=== PATIENT | male | born 1955 | race Caucasian/White ===

== ENCOUNTER 2016-05-22 14:06 | Inpatient (IN) | payer OTHER ==
[~2016-05-22] VITALS: Ht 160 cm; Wt 79.9 kg
[~2016-05-22 14:06] MED LIST: ALPR0.25 PO; AMLO-218 PO; ASPI-664 PO; ATEN-122 PO; ATOR20TA38 PO; CITA20TA11 PO; HYDR-3671 PO; IMO2 PO; METR500T PO; NEPH PO; TRAZ100T15 PO; ZOLP5TAB PO
[2016-05-22 17:27] VITALS: TEMP 98.9
[2016-05-22] MEDS ORDERED: ONDANSETRON 4 MG INJ IV STA (18:15)
[2016-05-22] MEDS ORDERED: PANTOPRAZOLE IV 80 MG in SOD CHLORIDE 0.9% 100 ML IV STA (18:15)
[2016-05-22] MEDS ORDERED: PANTOPRAZOLE 40 MG INJ IV STA (18:15)
[2016-05-22] MEDS ORDERED: FAMOTIDINE 20 MG INJ IV STA (18:15)
[2016-05-22] MEDS ORDERED: FAMO20TA18 PO (18:22)
[2016-05-22] MEDS ORDERED: APR50 PO (18:23)
[2016-05-22] MEDS ORDERED: CLON-379 PO (18:24)
[2016-05-22] MEDS ORDERED: AMLO5TAB4 PO (18:25)
[2016-05-22] MEDS ORDERED: ATOR40TA68 PO (18:26)
[2016-05-22] MEDS ORDERED: OLAN5TAB5 PO (18:27)
[2016-05-22] MEDS ORDERED: TRAZ100T15 PO (18:27)
[2016-05-22] MEDS ORDERED: PARO20TA58 PO (18:27)
[2016-05-22] MEDS ORDERED: CARV12.579 PO (18:28)
[2016-05-22] MEDS ORDERED: LOSA50TA6 PO (18:28)
--- NOTE | 2016-05-22 19:32 | ERA ---
ER Documentation Chief Complaint Date/Time DATE: 05/22/16 TIME: 19:21 Chief Complaint vomiting blood started today also bilaterial leg swelling HPI This is a 60-year-old male with a known history of hypertension that presents to the emergency department complaining of multiple episodes of nonbloody nonbilious emesis and loose watery stools that have been present for the past 10 hours. The patient stated he awoke this morning at 9 AM and felt very nauseous. He had an episode of nonbilious emesis which he stated had a pinkish tinge to the vomit. He continued to have multiple further episodes of emesis that was nonbloody nonbilious. Contrary to the triage note the patient stated he was not vomiting bright red blood but rather had the one episode is stated previously of a pinkish discoloration. The patient states he has had no melanotic stools or bright red blood per rectum. He is complaining of a significant amount of abdominal pain most prominent in the left lower quadrant which is a sharp shooting pain, nonradiating, 6 out of 10 in intensity. The patient had a previous appendectomy. He has no shortness of breath at rest or exertion. He denies any chest pain or pressure that radiates to the neck arm back or jaw. The patient states he had been seen and evaluated at [facility] at the onset of his symptoms and had been discharged. He indicated his symptoms had not improved and therefore he presented to the emergency department at [facility] for further evaluation. He denies any similar symptoms in the past. The patient has a remote history of alcohol abuse but states he has not consumed any ethanol for the past 2 months. He denies any illicit drug use. The patient also indicates that he has noticed mild swelling of his bilateral lower extremities that began yesterday evening. He stated the right ankle appeared more swollen compared to the left. He denies any recent travel or prolonged immobilization states he has no calf tenderness or muscle spasms. ROS All systems reviewed and are negative except as per history of present illness. Medications Home Meds Active Scripts Atenolol* (Tenormin*) 50 Mg Tab, 50 MG PO BID for 30 Days, TAB Prov:DANILO SINGH NUCLEAR UNIT OPERATOR 07/22/15 Reported Medications Losartan Potassium* (Losartan Potassium*) 50 Mg Tablet, 50 MG PO BID, TAB 05/22/16 Carvedilol* (Carvedilol*) 12.5 Mg Tablet, 12.5 MG PO BID, #60 TAB 05/22/16 Trazodone Hcl* (Desyrel*) 100 Mg Tab, 100 MG PO QHS, #30 TAB 05/22/16 Paroxetine Hcl* (Paxil*) 20 Mg Tablet, 20 MG PO DAILY, TAB 05/22/16 Olanzapine* (Zyprexa*) 5 Mg Tablet, 5 MG PO DAILY, #30 TAB 05/22/16 Atorvastatin* (Atorvastatin*) 40 Mg Tablet, 40 MG PO QHS, #30 TAB 05/22/16 Amlodipine Besylate* (Norvasc*) 5 Mg Tablet, 5 MG PO DAILY, TAB 05/22/16 Clonidine Hcl* (Clonidine Hcl*) 0.1 Mg Tab, 0.1 MG PO QAM, TAB TAKE 2ND DOSAGE IN THE PM IF NEEDED 05/22/16 Hydralazine Hcl* (Hydralazine Hcl*) 50 Mg Tab, 50 MG PO BID, #120 TAB 05/22/16 Famotidine* (Famotidine*) 20 Mg Tablet, 20 MG PO BID, #60 TAB 05/22/16 Discontinued Scripts Metronidazole* (Flagyl*) 500 Mg Tablet, 500 MG PO Q8 for 14 Days, TAB Prov:MAURO JULIEN V. NUCLEAR UNIT OPERATOR 12/03/15 Hydralazine Hcl* (Hydralazine Hcl*) 25 Mg Tab, 25 MG PO TID for 30 Days, TAB Prov:MAURO JULIEN V. NUCLEAR UNIT OPERATOR 12/03/15 Multivit/Ca Carb/B Cmplx/Fa* (Candy-Edward*) 1 Tab Tab, 1 TAB PO DAILY for 30 Days , TAB 3 Refills Prov:EARL LEE S. 10/22/15 Loperamide Hcl* (Loperamide Hcl*) 2 Mg Cap, 2 MG PO Q4 Y for DIARRHEA for 30 Days, CAP Prov:EARL LEE S. 10/22/15 Citalopram Hydrobromide* (Celexa*) 20 Mg Tablet, 10 MG PO DAILY for 30 Days, TAB 1 Refill Prov:EARL LEE S. 10/22/15 Aspirin* (Aspirin* EC) 81 Mg Tabec, 81 MG PO DAILY for 30 Days Prov:MAURO JULIEN V. NUCLEAR UNIT OPERATOR 08/20/15 Atorvastatin Calcium* (Atorvastatin Calcium*) 20 Mg Tab, 40 MG PO HS for 30 Days , TAB Prov:JULIEN,MAURO V. NUCLEAR UNIT OPERATOR 08/20/15 Trazodone Hcl* (Desyrel*) 100 Mg Tab, 100 MG PO HS for 30 Days, TAB Prov:JULIEN,MAURO V. NUCLEAR UNIT OPERATOR 08/20/15 Amlodipine Besylate* (Norvasc*) 10 Mg Tab, 10 MG PO DAILY for 30 Days, TAB Prov:JULIEN,MAURO V. NUCLEAR UNIT OPERATOR 08/20/15 Alprazolam* (Xanax*) 0.25 Mg Tablet, 0.25 MG PO Q8H Y for ANXIETY, #30 TAB Prov:DANILO SINGH NUCLEAR UNIT OPERATOR 07/25/15 Zolpidem Tartrate* (Ambien*) 5 Mg Tablet, 5 MG PO QHS Y for INSOMNIA, #20 TAB Prov:DANILO SINGH NUCLEAR UNIT OPERATOR 07/25/15 Allergies Allergies: Coded Allergies: No Known Allergies (Verified Allergy, Unknown, 05/22/16) PMhx/Soc Medical and Surgical Hx: pt denies Surgical Hx History of Surgery: No Anesthesia Reaction: No Hx Neurological Disorder: Yes (dizziness) Hx Respiratory Disorders: No Hx Cardiac Disorders: Yes (HTN) Hx Psychiatric Problems: Yes (alcohol abuse) Hx Miscellaneous Medical Probl: Yes (dyslipidemia, renal insuff) Hx Alcohol Use: Yes (vodka 11/28/15) Hx Substance Use: No Hx Tobacco Use: No Smoking Status: Never smoker Physical Exam Vitals Vital Signs Date Time Temp Pulse Resp B/P Pulse Ox O2 Delivery O2 Flow Rate FiO2 05/22/16 19:46 107 18 171/107 99 Room Air 05/22/16 17:27 98.9 124 22 167/101 98 Room Air 05/22/16 14:20 97.8 120 20 181/104 97 Physical Exam Constitutional:Well-developed. Well-nourished. HEENT:Normocephalic. Atraumatic.Pupils were equal round reactive to light. Dry mucous membranes.No tonsillar exudates. No conjunctival pallor. No blood present within the oropharynx. Neck: No nuchal rigidity. No lymphadenopathy. No posterior cervical spine tenderness or step-offs. Respiratory: Not using accessory muscles of respiration.Lungs were clear to auscultation bilaterally. No rhonchi. No rales. No wheezing. Cardiovascular: Regular rate regular rhythm.No murmurs. No rubs were appreciated.S1, S2 normal. Distal pulses are palpable 2+ bilaterally. GI: Abdomen was soft. Tenderness in the left lower quadrant. Non Distended. No pulsatile abdominal masses or bruits. No rebound. No guarding. Bowel sounds were present and normal. Muscle skeletal: Full range of motion of both the upper and lower extremities bilaterally.Normal muscle tone.No assymetrical calf tenderness or swelling. 1+ pitting edema of the right lower extremity only present around the ankle and dorsal aspect of the foot with no edema of the left lower extremity. Skin: No petechia, no purpura. No lesions on the palms or the soles of the feet. No maculopapular rash. NEURO: Patient was alert, awake, orientated x3.No facial droop. Gait observed and normal with no ataxia.Speech had regular rate and rhythm. No focal neurological deficits. Result Diagram: 05/22/16184405/22/161844 Results 24 hrs Laboratory Tests Test 05/22/16 18:45 05/22/16 19:54 Activated Partial Thromboplast Time 32.6Sec Alanine Aminotransferase (ALT/SGPT) 25IU/L Albumin 4.2g/dl Albumin/Globulin Ratio 1.23 Alkaline Phosphatase 62IU/L Amylase Level 117U/L Anion Gap 18 Aspartate Amino Transf (AST/SGOT) 29IU/L Basophils # 0.010^3/ul Basophils % 0.4% Blood Morphology Comment Blood Urea Nitrogen 15mg/dl Calcium Level 9.3mg/dl Carbon Dioxide Level 27mmol/L Chloride Level 102mmol/L Creatinine 1.30mg/dl Direct Bilirubin 0.00mg/dl Eosinophils # 0.110^3/ul Eosinophils % 1.5% Globulin 3.40g/dl Glucose Level 101mg/dl Hematocrit 31.4% Hemoglobin 10.6g/dl INR International Normalized Ratio 1.04 Indirect Bilirubin 1.0mg/dl Lipase 126U/L Lymphocytes # 0.910^3/ul Lymphocytes % 13.1% Mean Corpuscular Hemoglobin 29.8pg Mean Corpuscular Hemoglobin Concent 33.9g/dl Mean Corpuscular Volume 87.8fl Mean Platelet Volume 7.2fl Monocytes # 1.010^3/ul Monocytes % 15.3% Neutrophils # 4.710^3/ul Neutrophils % 69.7% Nucleated Red Blood Cells # 0.010^3/ul Nucleated Red Blood Cells % 0.0/100WBC Platelet Count 79314^3/UL Platelet Estimate PLT APPEAR ADEQUATE Potassium Level 3.4mmol/L Prothrombin Time 13.6Sec Prothrombin Time Ratio 1.1 Red Blood Count 3.5810^6/ul Red Cell Distribution Width 15.9% Sodium Level 144mmol/L Total Bilirubin 1.0mg/dl Total Protein 7.6g/dl Troponin I < 0.012ng/ml White Blood Count 6.810^3/ul Urine Bacteria RARE Urine Bilirubin NEGATIVE Urine Clarity CLEAR Urine Color LT. YELLOW Urine Glucose NEGATIVE% Urine Hemoglobin 1+ Urine Ketones NEGATIVE Urine Leukocyte Esterase NEGATIVE Urine Microscopic RBC 2-5/HPF Urine Microscopic WBC 0-2/HPF Urine Nitrite NEGATIVE Urine Specific [place] 1.020 Urine Squamous Epithelial Cells FEW Urine Total Protein 4+ Urine Urobilinogen 0.2 E.U./dL Urine pH 7.5 Current Medications Medications (Trade) Dose Ordered Sig/Sharda Route PRN Reason Start Time Stop Time Status Last Admin Dose Admin Famotidine (Pepcid Iv) 20 mg ONCE STAT IV 05/22/16 18:15 05/22/16 18:17 DC 05/22/16 19:48 Pantoprazole 40 mg 40 mg ONCE STAT IV 05/22/16 18:15 05/22/16 18:17 DC 05/22/16 19:48 Pantoprazole/ Sodium Chloride (Protonix Iv/NS) 100 ml @ 10 mls/hr ONCE STAT IV 05/22/16 18:15 05/23/16 04:14 Cancel Ondansetron HCl (Zofran Inj) 4 mg ONCE STAT IV 05/22/16 18:15 05/22/16 18:17 DC 05/22/16 19:48 Morphine Sulfate (morphine) 4 mg ONCE STAT IV 05/22/16 20:12 05/22/16 20:13 DC 05/22/16 20:22 Metoclopramide HCl (Reglan) 10 mg ONCE STAT IV 05/22/16 20:12 05/22/16 20:13 DC 05/22/16 20:21 IV Flush 10 ml 10 ml STK-MED ONCE .ROUTE 05/22/16 20:20 05/22/16 20:21 DC 05/22/16 20:40 Sodium Chloride (NS) 100 ml @ ud STK-MED ONCE .ROUTE 05/22/16 20:20 05/22/16 20:21 DC 05/22/16 20:40 Iodixanol (Visipaque Locm) 100 ml STK-MED ONCE .ROUTE 05/22/16 20:20 05/22/16 20:21 DC Clonidine (Catapres) 0.2 mg ONCE ONCE PO 05/22/16 21:30 05/22/16 21:31 UNV Metoclopramide HCl (Reglan) 10 mg ONCE ONCE IV 05/22/16 21:30 05/22/16 21:31 UNV Procedures/MDM The patient presented to the emergency department with a presentation of upper gastrointestinal bleeding and abdominal pain. My differential diagnosis included but was not limited to peptic ulcer disease, gastric or esophageal erosions, gastritis, esophageal varices, Gloria-Yarbrough tear, tumor or arteriovenous malformations. Given that the patient also had abdominal pain my differential diagnosis included but was not limited to abdominal aortic aneurysm , appendicitis, pancreatitis, perforated peptic ulcer, perforated viscus, Boerhaaves syndrome or visceral pain such as diverticulitis, DKA, esophagitis, hepatitis or bowel obstruction. The patient was placed on a diamond cleaver, continuous pulse oximetry, and IV access was established by nursing staff. The patient received IV fluids, Protonix and Zofran as an antiemetic. For analgesic control the patient received intravenous morphine. I obtained a CT scan of the abdomen which was reviewed by the radiologist as well as myself. There was evidence of diverticulosis without diverticulitis. The patient was hypertensive upon arrival into the emergency department with no signs of end-organ damage to suggest hypertensive emergency or urgency. I obtained a 12-lead EKG tracing which showed no left ventricular hypertrophy. Blood pressure improved with oral clonidine 12 Lead EKG tracing ordered and reviewed by myself showed: Sinus tachycardia of 123 bpm and no arrhythmia. SD interval normal. QRS duration normal. No ST segment elevation No ST segment depression. No changes consistent with acute ischemia. I did explain to the patient that this could likely be a result of a viral etiology causing gastritis and enteritis. He has no risk factors for Clostridium difficile. The patient has a remote history of alcohol abuse but states he has not consumed any alcohol for the past 2 months. He did state he had one episode of pinkish emesis and his hemoglobin was stable at 10.4. Observation Note: Time: 4 hours Family Hx: No Hypertension Evaluation: Multiple exams showed no peritoneal signs of the abdomen. The patient had received multiple doses of antiemetics but still continued to feel nauseous. The patient therefore will be admitted for observation for IV fluid hydration Departure Diagnosis: Primary Impression: Intractable nausea and vomiting Qualified Code: R11.2 - Intractable vomiting with nausea, unspecified vomiting type Additional Impressions: Diarrhea Qualified Code: R19.7 - Diarrhea, unspecified type Diverticulosis Qualified Code: K57.10 - Diverticulosis of small intestine without hemorrhage Condition: Serious ANDRES BARBOZA May 22, 2016 19:32
[2016-05-22 19:46] LABS: BASOPHILS % 0.4 % (0.0-2.0); EOSINOPHILS # 0.1 10^3/ul (0.0-0.5); EOSINOPHILS % 1.5 % (0.0-7.0); HEMATOCRIT 31.4 % (42.0-52.0); HEMOGLOBIN 10.6 g/dl (14.0-18.0); LYMPHOCYTES # 0.9 10^3/ul (0.8-2.9); LYMPHOCYTES % 13.1 % (15.0-51.0); MEAN CORPUSCULAR HEMOGLOBIN 29.8 pg (29.0-33.0); MEAN CORPUSCULAR HGB CONC 33.9 g/dl (32.0-37.0); MEAN CORPUSCULAR VOLUME 87.8 fl (82.0-101.0); MEAN PLATELET VOLUME 7.2 fl (7.4-10.4); MONOCYTES % 15.3 % (0.0-11.0); NEUTROPHIL # 4.7 10^3/ul (1.6-7.5); NEUTROPHILS % 69.7 % (39.0-77.0); PLATELET COUNT 201 10^3/UL (140-440); RED BLOOD COUNT 3.58 10^6/ul (4.70-6.10); RED CELL DISTRIBUTION WIDTH 15.9 % (11.5-14.5); UNCORRECTED WBC 6.8 10^3/ul (4.8-10.8); WHITE BLOOD COUNT 6.8 10^3/ul (4.8-10.8)
[2016-05-22 19:48] LABS: CONDITION 1; LH ANALYZER COMMENTS 1
[2016-05-22 19:56] LABS: ALBUMIN 4.2 g/dl (3.3-4.9)
[2016-05-22 19:57] LABS: CHLORIDE 102 mmol/L (97-110); INR 1.04; POTASSIUM 3.4 mmol/L (3.5-5.1); PROTIME 13.6 Sec (12.2-14.2); PT RATIO 1.1; SODIUM 144 mmol/L (135-144)
[2016-05-22 19:58] LABS: PARTIAL THROMBOPLASTIN TIME 32.6 Sec (25.0-35.0)
[2016-05-22 19:59] LABS: ALANINE AMINOTRANSFERASE 25 IU/L (13-69); ALBUMIN/GLOBULIN RATIO 1.23; ALKALINE PHOSPHATASE 62 IU/L (42-121); AMYLASE 117 U/L (11-123); ANION GAP 18 (8-16); ASPARTATE AMINO TRANSFERASE 29 IU/L (15-46); BLOOD UREA NITROGEN 15 mg/dl (7-20); CARBON DIOXIDE 27 mmol/L (21-31); GLUCOSE 101 mg/dl (70-220); TOTAL PROTEIN 7.6 g/dl (6.1-8.1)
[2016-05-22 20:00] LABS: CALCIUM 9.3 mg/dl (8.4-10.2)
[2016-05-22 20:11] LABS: ADD UMIC YES; URINE BILIRUBIN (Dip) NEGATIVE (NEGATIVE); URINE BLOOD (Dip) 1+ (NEGATIVE); URINE COLOR LT. YELLOW (YELLOW); URINE GLUCOSE (Dip) NEGATIVE (NEGATIVE); URINE KETONES (Dip) NEGATIVE (NEGATIVE); URINE LEUKOCYTE ESTERASE (Dip) NEGATIVE (NEGATIVE); URINE NITRITE (Dip) NEGATIVE (NEGATIVE); URINE TOTAL PROTEIN (Dip) 4+ (NEGATIVE); URINE UROBILINOGEN (Dip) 0.2 E.U./dL (0.1-1.0)
[2016-05-22] MEDS ORDERED: morphine 4 MG/ML VIAL IV STA (20:12)
[2016-05-22] MEDS ORDERED: METOCLOPRAMIDE 10 MG INJ IV STA (20:12)
[2016-05-22 20:19] LABS: TROPONIN-I < 0.012 ng/ml (0.00-0.12)
[2016-05-22] MEDS ORDERED: SOD CHLORIDE 0.9% 100 ML ONE (20:20)
[2016-05-22] MEDS ORDERED: IODIXANOL LOCM 100 ML BTL ONE (20:20)
[2016-05-22 20:35] LABS: BACTERIA,URINE RARE; SQUAMOUS EPITHELIAL CELL,UR FEW
--- NOTE | 2016-05-22 20:53 | RADRPT ---
PROCEDURE: CT of the abdomen and pelvis CLINICAL INDICATION: Abdominal pain TECHNIQUE: The study was performed utilizing a [employer] 64-slice multidetector CT scanner. Dir ect spiral axial sections were obtained through the abdomen and pelvis with intravenous contrast. Af ter administration of 90 cc of Isovue -300, postcontrast images were obtained. Coronal and sagittal reformatted images were performed. The CTDI vol is 18.96 mGy and the DLP is 1175.42 mGy-cm. The im ages were reviewed on a PACS workstation. COMPARISON: No prior studies are available for comparison. FINDINGS: CT abdomen: Minimal dependent changes in the lung bases are seen. The remaining lung bases are toshia ar. The heart is not enlarged. No pleural or pericardial effusion is seen. The liver is normal in size and contour. No focal liver lesions or intrahepatic biliary dilatation is seen. The gallbladder is normal. No biliary dilatation is seen. The spleen, pancreas, and adrena l glands are unremarkable in appearance. The kidneys are normal size and contour enhance normally. B ilateral renal cortical scarring is seen. Simple bilateral renal cysts are seen. Nonspecific bilat eral perinephric soft tissue stranding is seen. No evidence of hydronephrosis or nephrolithiasis is seen. The stomach is unremarkable. Diverticulosis is seen in the descending colon and sigmoid colon out e vidence of diverticulitis. The small and remainder of the large bowel are otherwise unremarkable in course and caliber. No inflammatory changes in the periappendiceal region is seen. No enlarged lym ph nodes or fluid collections are seen. The aorta is normal in caliber . CT pelvis: No pelvic mass, adenopathy, or focal fluid collection is seen. There is no free fluid. The urinary bladder is normal. Degenerative spondylosis in the lower thoracic and lumbar spine is s een. Anterior bridging syndesmophytes are seen with relative preservation of the disk space. No osse ous lesions are seen. IMPRESSION: 1. No acute pathology in the abdomen and pelvis. 2. Bilateral renal cortical scarring with nonspecific perinephric soft tissue stranding. 3. Colonic diverticulosis without evidence of diverticulitis. RPTAT: HPNM Wilson Ballard, Physician Date Time Electronically viewed and signed by Wilson Ballard, Physician on 05/22/2016 20:52 /
[2016-05-22 21:22] LABS: PLATELET ESTIMATE PLT APPEAR ADEQUATE
[2016-05-22] MEDS ORDERED: METOCLOPRAMIDE 10 MG INJ IV ONE (21:30)
[2016-05-22] MEDS ORDERED: ACETAMINOPHEN 325 MG TAB PO PRN (22:00)
[2016-05-22] MEDS ORDERED: ONDANSETRON 4 MG INJ IV PRN (22:00)
[2016-05-22 22:31] VITALS: PULSE 106
[2016-05-22 22:52] VITALS: Ht 160 cm; Wt 79.9 kg
[2016-05-22] MEDS ORDERED: ALBUTEROL/IPRATROPIUM (NEB) 3 ML AMP HHN PRN (23:00)
[2016-05-22] MEDS ORDERED: morphine 2 MG INJ IV PRN (23:00)
[2016-05-23] VITALS (10 sets, daily range): BP systolic 123–158; BP diastolic 77–97; PULSE 80–98; RESP 14–21
[2016-05-23] MEDS: ZOLPIDEM 5 MG TAB PO PRN (00:50)
[2016-05-23] MEDS ORDERED: ONDANSETRON 4 MG INJ IV PRN (05:00)
[2016-05-23] MEDS ORDERED: DEXTROSE 5%-0.45% NACL 1,000 ML IV SCH (05:00)
[2016-05-23] MEDS ORDERED: hydrALAzine 20 MG INJ IV PRN (05:00)
[2016-05-23] MEDS: metroNIDAZOLE 500 MG/NS (PMX) 100 ML IVPB SCH ×3 (05:26→22:50)
[2016-05-23] MEDS: PANTOPRAZOLE 40 MG INJ IV SCH (05:26)
[2016-05-23] MEDS ORDERED: ACETAMINOPHEN 325 MG TAB PO PRN (05:30)
--- NOTE | 2016-05-23 06:01 | HP ---
DATE OF ADMISSION: 05/22/2016 CHIEF COMPLAINT: Abdominal pain, nausea, vomiting, and diarrhea. HISTORY OF PRESENT ILLNESS: The patient is a 60-year-old male with a history of hypertension, CVA, dyslipidemia, depression, alcohol abuse, dyslipidemia, C. diff, medication noncompliance, and renal insufficiency who presented to the emergency department with abdominal pain, nausea, vomiting, and d iarrhea. He stated his symptoms started earlier this morning. His abdominal pain is diffuse and as sociated with multiple episodes of nonbloody, nonbilious emesis. He described his diarrhea as water y. He said he actually went to [facility] earlier and was diagnosed with "diverticulitis" but said "they were not able to treat me because of my insurance." As such, according to him, he de cided to come and stayed for evaluation. The patient was last admitted here 6 months ago, and at at time, he was treated for alcohol withdrawal as well as C. diff. When he presented to the ER today, blood pressure was 181/104, heart rate 120, respiratory rate 20, temperature 97.8, oxygen saturation 97% on room air. Laboratory values show a potassium of 3.4, cre atinine 1.3, and hemoglobin 10.6. CT abdomen and pelvis shows colonic diverticulosis without eviden ce of diverticulitis. The patient was given pain medication, antiemetics, and blood pressure medication while he was in e ER. REVIEW OF SYSTEMS: A 12-point review was performed and negative except as mentioned in HPI. PAST MEDICAL HISTORY: As per HPI. PAST SURGICAL HISTORY: Denies. SOCIAL HISTORY: Positive for alcohol abuse, including binge drinking. ALLERGIES: NO KNOWN DRUG ALLERGIES. HOME MEDICATIONS: 1. Norvasc. 2. Atenolol. 3. Lipitor. 4. Coreg. 5. Clonidine. 6. Hydralazine. 7. Losartan. 8. Olanzapine. 9. Paroxetine. 10. Trazodone. 11. Famotidine. PHYSICAL EXAMINATION: GENERAL: No acute distress, answering questions appropriately, alert and oriented. HEENT: Normocephalic, atraumatic. Extraocular muscles intact. Pupils are reactive to light. CARDIOVASCULAR: Tachycardic with regular rhythm. LUNGS: Clear with no wheezes or rhonchi. ABDOMEN: Soft. There is some discomfort diffusely to deep palpation with no guarding. No rigidity . There are positive bowel sounds. EXTREMITIES: No edema. NEUROLOGIC: No focal deficits. LABORATORY DATA: Pertinent positives as mentioned in the HPI. IMPRESSION: 1. Abdominal pain with nausea, vomiting, and diarrhea. 2. Hypertension, blood pressure not at goal. 3. Chronic kidney disease. 4. Anemia of chronic disease. 5. History of alcohol abuse. 6. Mild hypokalemia. 7. History of chronic cerebrovascular accident as noted on head CT in September of 2015. 8. History of C. diff. PLAN: The patient's symptom of abdominal pain, nausea, vomiting, and diarrhea could be secondary to gastroenteritis versus possibly from C. difficile colitis given his history. He will be kept n.p.o . for now. We will provide pain medication and antiemetics. He will receive IV fluid. We will sta rt him on Cipro and Flagyl. We will send stool culture, stool WBC, and C. diff. He will receive an tihypertensives for better blood pressure control. Once he is no longer n.p.o., he will be continue d with his home medication with adjustment as needed. We will avoid nephrotoxins and renally dose a ll medications. Further workup and management per clinical course. Dictated By: JORGE PAULINO/RIZWANA Conf#: [id number] DID#: [id number]
[2016-05-23] MEDS ORDERED: ATENOLOL 50 MG TAB PO SCH (09:00)
[2016-05-23] MEDS ORDERED: FAMOTIDINE 20 MG TAB PO SCH (09:00)
[2016-05-23] MEDS: CIPROFLOXACIN 400MG/D5W 200 ML IVPB SCH ×2 (09:37→20:53)
[2016-05-23] MEDS: LOSARTAN 50 MG TAB PO SCH ×2 (09:40→20:54)
[2016-05-23] MEDS: PAROXETINE 20 MG TAB PO SCH (09:41)
[2016-05-23] MEDS: AMLODIPINE 5 MG TAB PO SCH (09:41)
[2016-05-23] MEDS: OLANZAPINE 5 MG TAB PO SCH (09:42)
--- NOTE | 2016-05-23 10:46 | PN ---
Date/Time of Note Date/Time of Note DATE: 05/23/16 TIME: 10:44 Assessment/Plan VTE Prophylaxis VTE Prophylaxis Intervention: SCD's Lines/Catheters IV Catheter Type (from [facility]): Saline Lock Urinary Cath still in place: No Assessment/Plan Assessment/Plan 1. Abdominal pain with nausea, vomiting, and diarrhea. 2. Hypertension, blood pressure not at goal. 3. Chronic kidney disease. 4. Anemia of chronic disease. 5. History of alcohol abuse. 6. Mild hypokalemia. 7. History of chronic cerebrovascular accident as noted on head CT in September of 2015. 8. History of C. diff. Iv abx start diet Bp stable downgrade to med;/surge floor Subjective 24 Hr Interval Summary Free Text/Dictation DOING OK, WANTS TO EAT Exam/Review of Systems Vital Signs Vitals Vital Signs Date Time Temp Pulse Resp B/P Pulse Ox O2 Delivery O2 Flow Rate FiO2 05/23/16 08:55 92 05/23/16 07:54 97.7 14 158/97 95 05/23/16 04:46 Room Air Intake and Output 05/22/16 05/22/16 05/23/16 15:00 23:00 07:00 Output Total 350 ml Balance -350 ml Exam GENERAL: No acute distress, answering questions appropriately, alert and oriented. HEENT: Normocephalic, atraumatic. Extraocular muscles intact. Pupils are reactive to light. CARDIOVASCULAR: Tachycardic with regular rhythm. LUNGS: Clear with no wheezes or rhonchi. ABDOMEN: Soft. There is some discomfort diffusely to deep palpation with no guarding. No rigidity. There are positive bowel sounds. EXTREMITIES: No edema. NEUROLOGIC: No focal deficits. Results Result Diagram: 05/22/16184405/22/161844 Results 24 hrs Laboratory Tests Test 05/22/16 18:45 05/22/16 19:54 Activated Partial Thromboplast Time 32.6 Alanine Aminotransferase (ALT/SGPT) 25 Albumin 4.2 Albumin/Globulin Ratio 1.23 Alkaline Phosphatase 62 Amylase Level 117 Anion Gap 18 H Aspartate Amino Transf (AST/SGOT) 29 Basophils # 0.0 Basophils % 0.4 Blood Morphology Comment Blood Urea Nitrogen 15 Calcium Level 9.3 Carbon Dioxide Level 27 Chloride Level 102 Creatinine 1.30 H Direct Bilirubin 0.00 Eosinophils # 0.1 Eosinophils % 1.5 Globulin 3.40 H Glucose Level 101 Hematocrit 31.4 L Hemoglobin 10.6 L INR International Normalized Ratio 1.04 Indirect Bilirubin 1.0 Lipase 126 Lymphocytes # 0.9 Lymphocytes % 13.1 L Mean Corpuscular Hemoglobin 29.8 Mean Corpuscular Hemoglobin Concent 33.9 Mean Corpuscular Volume 87.8 Mean Platelet Volume 7.2 L Monocytes # 1.0 H Monocytes % 15.3 H Neutrophils # 4.7 Neutrophils % 69.7 Nucleated Red Blood Cells # 0.0 Nucleated Red Blood Cells % 0.0 Platelet Count 201 # Platelet Estimate PLT APPEAR ADEQUATE Potassium Level 3.4 L Prothrombin Time 13.6 Prothrombin Time Ratio 1.1 Red Blood Count 3.58 L Red Cell Distribution Width 15.9 H Sodium Level 144 Total Bilirubin 1.0 Total Protein 7.6 Troponin I < 0.012 White Blood Count 6.8 # Urine Bacteria RARE Urine Bilirubin NEGATIVE Urine Clarity CLEAR Urine Color LT. YELLOW Urine Glucose NEGATIVE Urine Hemoglobin 1+ H Urine Ketones NEGATIVE Urine Leukocyte Esterase NEGATIVE Urine Microscopic RBC 2-5 Urine Microscopic WBC 0-2 Urine Nitrite NEGATIVE Urine Specific [place] 1.020 Urine Squamous Epithelial Cells FEW Urine Total Protein 4+ H Urine Urobilinogen 0.2 E.U./dL Urine pH 7.5 Medications Medications Current Medications Pantoprazole (Protonix Iv) 40 mg DAILY@06 IV Last administered on 05/23/16 05: 26; Admin Dose 40 MG; Start 05/23/16 at 06:00 Morphine Sulfate (morphine) 2 mg Q4H PRN IV pain Last administered on 05/23/16 03:39; Admin Dose 2 MG; Start 05/22/16 at 23:00 Zolpidem Tartrate 5 mg 5 mg HS PRN PO INSOMNIA Last administered on 05/23/16 00 :50; Admin Dose 5 MG; Start 05/23/16 at 01:00 Ciprofloxacin/ Dextrose 200 ml @ 200 mls/hr Q12 IVPB Last administered on 09:37; Admin Dose 200 MLS/HR; Start 05/23/16 at 09:00 Metronidazole (Flagyl 500 Mg (Pmx)) 100 ml @ 100 mls/hr Q8 IVPB Last administered on 05/23/16 05:26; Admin Dose 100 MLS/HR; Start 05/23/16 at 06:00 Ondansetron HCl (Zofran Inj) 4 mg Q6H PRN IV NAUSEA AND/OR VOMITING; Start 05/23 at 05:00 Hydralazine HCl (Apresoline) 10 mg Q4H PRN IV SBP > 160; Start 05/23/16 at 05:00 Amlodipine Besylate (Norvasc) 5 mg DAILY PO Last administered on 05/23/16 09:41 ; Admin Dose 5 MG; Start 05/23/16 at 09:00 Atenolol (Tenormin) 50 mg BID PO Last administered on 05/23/16 09:42; Admin Dose 50 MG; Start 05/23/16 at 09:00 Atorvastatin Calcium (Lipitor) 40 mg QHS PO ; Start 05/23/16 at 21:00 Carvedilol (Coreg) 12.5 mg BID PO Last administered on 05/23/16 09:40; Admin Dose 12.5 MG; Start 05/23/16 at 09:00 Famotidine (Pepcid) 20 mg BID PO Last administered on 05/23/16 09:41; Admin Dose 20 MG; Start 05/23/16 at 09:00 Hydralazine HCl (Apresoline) 50 mg BID PO Last administered on 05/23/16 09:39; Admin Dose 50 MG; Start 05/23/16 at 09:00 Losartan Potassium (Cozaar) 50 mg BID PO Last administered on 05/23/16 09:40; Admin Dose 50 MG; Start 05/23/16 at 09:00 Olanzapine (Zyprexa) 5 mg DAILY PO Last administered on 05/23/16 09:42; Admin Dose 5 MG; Start 05/23/16 at 09:00 Paroxetine HCl (Paxil) 20 mg DAILY PO Last administered on 05/23/16 09:41; Admin Dose 20 MG; Start 05/23/16 at 09:00 Trazodone HCl (Desyrel) 100 mg QHS PO ; Start 05/23/16 at 21:00 Acetaminophen (Tylenol Tab) 650 mg Q4H PRN PO PAIN AND OR ELEVATED TEMP Last administered on 05/23/16 05:25; Admin Dose 650 MG; Start 05/23/16 at 05:30 VIOLET WILSON MD May 23, 2016 10:46
[2016-05-23] MEDS: ATORVASTATIN 40 MG TAB PO SCH (20:53)
[2016-05-23] MEDS: traZODone 100 MG TAB PO SCH (21:00)
[2016-05-24 00:50] VITALS: BP 166/98; RESP 18
[2016-05-24 00:53] VITALS: BP 152/84; PULSE 84
[2016-05-24] MEDS: ZOLPIDEM 5 MG TAB PO PRN ×2 (01:49→23:26)
[2016-05-24] MEDS: metroNIDAZOLE 500 MG/NS (PMX) 100 ML IVPB SCH ×3 (05:38→21:36)
[2016-05-24] MEDS: PANTOPRAZOLE 40 MG INJ IV SCH (05:38)
[2016-05-24 08:17] LABS: INR 1.02; PROTIME 13.4 Sec (12.2-14.2)
[2016-05-24 08:18] LABS: PARTIAL THROMBOPLASTIN TIME 33.6 Sec (25.0-35.0)
[2016-05-24] MEDS: PAROXETINE 20 MG TAB PO SCH (09:00)
[2016-05-24] MEDS: OLANZAPINE 5 MG TAB PO SCH (09:00)
[2016-05-24 09:25] VITALS: BP 170/94; PULSE 93; RESP 18
[2016-05-24] MEDS: CIPROFLOXACIN 400MG/D5W 200 ML IVPB SCH ×2 (09:25→20:37)
[2016-05-24 09:31] LABS: BASOPHILS % 0.3 % (0.0-2.0); EOSINOPHILS # 0.3 10^3/ul (0.0-0.5); EOSINOPHILS % 4.9 % (0.0-7.0); HEMATOCRIT 30.4 % (42.0-52.0); HEMOGLOBIN 10.4 g/dl (14.0-18.0); LYMPHOCYTES # 0.8 10^3/ul (0.8-2.9); LYMPHOCYTES % 13.7 % (15.0-51.0); MEAN CORPUSCULAR HEMOGLOBIN 30.2 pg (29.0-33.0); MEAN CORPUSCULAR HGB CONC 34.4 g/dl (32.0-37.0); MEAN CORPUSCULAR VOLUME 87.9 fl (82.0-101.0); MEAN PLATELET VOLUME 8.4 fl (7.4-10.4); MONOCYTE # 0.5 10^3/ul (0.3-0.9); MONOCYTES % 8.5 % (0.0-11.0); NEUTROPHIL # 4.2 10^3/ul (1.6-7.5); NEUTROPHILS % 72.6 % (39.0-77.0); PLATELET COUNT 204 10^3/UL (140-440); RED BLOOD COUNT 3.46 10^6/ul (4.70-6.10); RED CELL DISTRIBUTION WIDTH 16.3 % (11.5-14.5); UNCORRECTED WBC 5.8 10^3/ul (4.8-10.8); WHITE BLOOD COUNT 5.8 10^3/ul (4.8-10.8)
[2016-05-24 09:33] LABS: CONDITION 1; LH ANALYZER COMMENTS 1
[2016-05-24 09:40] LABS: CREATININE 1.66 mg/dl (0.61-1.24)
[2016-05-24 09:41] LABS: CALCIUM 9.1 mg/dl (8.4-10.2)
[2016-05-24] MEDS ORDERED: MAGNESIUM SULFATE 2 GM/50 ML 50 ML IVPB SCH (10:30)
--- NOTE | 2016-05-24 11:39 | PN ---
Date/Time of Note Date/Time of Note DATE: 05/24/16 TIME: 11:37 Assessment/Plan VTE Prophylaxis VTE Prophylaxis Intervention: SCD's Lines/Catheters IV Catheter Type (from [facility]): [facility] Urinary Cath still in place: No Assessment/Plan Assessment/Plan 1. Abdominal pain with nausea, vomiting, and diarrhea. 2. Hypertension, blood pressure not at goal. 3. Chronic kidney disease. 4. Anemia of chronic disease. 5. History of alcohol abuse. 6. Mild hypokalemia. 7. History of chronic cerebrovascular accident as noted on head CT in September of 2015. 8. History of C. diff. Iv abx start diet Bp stable tolerating diet well Subjective 24 Hr Interval Summary Free Text/Dictation no acute events, BP stable,afebrile, No chest pain, tolerating PO diet Exam/Review of Systems Vital Signs Vitals Vital Signs Date Time Temp Pulse Resp B/P Pulse Ox O2 Delivery O2 Flow Rate FiO2 05/24/16 09:25 98.5 93 18 170/94 93 Room Air Intake and Output 05/23/16 05/23/16 05/24/16 15:00 23:00 07:00 Intake Total 700 ml 340 ml Output Total 750 ml Balance 700 ml -410 ml Exam GENERAL: No acute distress, answering questions appropriately, alert and oriented. HEENT: Normocephalic, atraumatic. Extraocular muscles intact. Pupils are reactive to light. CARDIOVASCULAR: Tachycardic with regular rhythm. LUNGS: Clear with no wheezes or rhonchi. ABDOMEN: Soft. There is some discomfort diffusely to deep palpation with no guarding. No rigidity. There are positive bowel sounds. EXTREMITIES: No edema. NEUROLOGIC: No focal deficits. Results Result Diagram: 05/24/16 0740 05/24/16 0740 Results 24 hrs Laboratory Tests Test 05/24/16 07:40 Activated Partial Thromboplast Time 33.6 Anion Gap 19 H Basophils # 0.0 Basophils % 0.3 Blood Morphology Comment Blood Urea Nitrogen 24 H Calcium Level 9.1 Carbon Dioxide Level 24 Chloride Level 101 Creatinine 1.66 H Eosinophils # 0.3 Eosinophils % 4.9 Glucose Level 118 Hematocrit 30.4 L Hemoglobin 10.4 L INR International Normalized Ratio 1.02 Lymphocytes # 0.8 Lymphocytes % 13.7 L Magnesium Level 1.3 L Mean Corpuscular Hemoglobin 30.2 Mean Corpuscular Hemoglobin Concent 34.4 Mean Corpuscular Volume 87.9 Mean Platelet Volume 8.4 Monocytes # 0.5 Monocytes % 8.5 Neutrophils # 4.2 Neutrophils % 72.6 Nucleated Red Blood Cells # 0.0 Nucleated Red Blood Cells % 0.0 Platelet Count 204 Potassium Level 4.0 Prothrombin Time 13.4 Prothrombin Time Ratio 1.0 Red Blood Count 3.46 L Red Cell Distribution Width 16.3 H Sodium Level 140 White Blood Count 5.8 Medications Medications Current Medications Pantoprazole (Protonix Iv) 40 mg DAILY@06 IV Last administered on 05/24/16 05: 38; Admin Dose 40 MG; Start 05/23/16 at 06:00 Morphine Sulfate (morphine) 2 mg Q4H PRN IV pain Last administered on 05/23/16 03:39; Admin Dose 2 MG; Start 05/22/16 at 23:00 Zolpidem Tartrate 5 mg 5 mg HS PRN PO INSOMNIA Last administered on 05/24/16 01 :49; Admin Dose 5 MG; Start 05/23/16 at 01:00 Ciprofloxacin/ Dextrose 200 ml @ 200 mls/hr Q12 IVPB Last administered on 09:25; Admin Dose 200 MLS/HR; Start 05/23/16 at 09:00 Metronidazole (Flagyl 500 Mg (Pmx)) 100 ml @ 100 mls/hr Q8 IVPB Last administered on 05/24/16 05:38; Admin Dose 100 MLS/HR; Start 05/23/16 at 06:00 Ondansetron HCl (Zofran Inj) 4 mg Q6H PRN IV NAUSEA AND/OR VOMITING; Start 05/23 at 05:00 Hydralazine HCl (Apresoline) 10 mg Q4H PRN IV SBP > 160; Start 05/23/16 at 05:00 Amlodipine Besylate (Norvasc) 5 mg DAILY PO Last administered on 05/23/16 09:41 ; Admin Dose 5 MG; Start 05/23/16 at 09:00 Atorvastatin Calcium (Lipitor) 40 mg QHS PO Last administered on 05/23/16 20:53 ; Admin Dose 40 MG; Start 05/23/16 at 21:00 Carvedilol (Coreg) 12.5 mg BID PO Last administered on 05/24/16 09:25; Admin Dose 12.5 MG; Start 05/23/16 at 09:00 Hydralazine HCl (Apresoline) 50 mg BID PO Last administered on 05/24/16 09:25; Admin Dose 50 MG; Start 05/23/16 at 09:00 Losartan Potassium (Cozaar) 50 mg BID PO Last administered on 05/23/16 20:54; Admin Dose 50 MG; Start 05/23/16 at 09:00 Olanzapine (Zyprexa) 5 mg DAILY PO Last administered on 05/23/16 09:42; Admin Dose 5 MG; Start 05/23/16 at 09:00 Paroxetine HCl (Paxil) 20 mg DAILY PO Last administered on 05/23/16 09:41; Admin Dose 20 MG; Start 05/23/16 at 09:00 Trazodone HCl (Desyrel) 100 mg QHS PO ; Start 05/23/16 at 21:00 Acetaminophen 650 mg 650 mg Q4H PRN PO PAIN AND OR ELEVATED TEMP Last administered on 05/23/16 05:25; Admin Dose 650 MG; Start 05/23/16 at 05:30 Magnesium Sulfate (Magnesium Sulfate 2 Gm/50 ml) 50 ml @ 25 mls/hr ONCE IVPB ; Start 05/24/16 at 10:30; Stop 05/24/16 at 12:29 VIOLET WILSON MD May 24, 2016 11:38
[2016-05-24] MEDS: AMLODIPINE 5 MG TAB PO SCH (12:50)
[2016-05-24] MEDS: LOSARTAN 50 MG TAB PO SCH ×2 (12:50→20:38)
[2016-05-24 12:55] VITALS: BP 157/90; PULSE 99
[2016-05-24] MEDS: traZODone 100 MG TAB PO SCH (20:38)
[2016-05-24] MEDS: ATORVASTATIN 40 MG TAB PO SCH (20:38)
[2016-05-24 22:00] VITALS: BP 138/96; PULSE 94
[2016-05-24 22:42] VITALS: BP 131/91; RESP 20
[2016-05-25] MEDS: metroNIDAZOLE 500 MG/NS (PMX) 100 ML IVPB SCH (06:16)
[2016-05-25] MEDS: PANTOPRAZOLE 40 MG INJ IV SCH (06:16)
[2016-05-25 07:22] VITALS: BP 180/97; RESP 16
[2016-05-25] MEDS: PAROXETINE 20 MG TAB PO SCH (08:40)
[2016-05-25] MEDS: CIPROFLOXACIN 400MG/D5W 200 ML IVPB SCH (08:40)
[2016-05-25] MEDS: LOSARTAN 50 MG TAB PO SCH (08:41)
[2016-05-25] MEDS: AMLODIPINE 5 MG TAB PO SCH (08:41)
[2016-05-25] MEDS: OLANZAPINE 5 MG TAB PO SCH (08:45)
--- NOTE | 2016-05-25 10:40 | PDOCDIS ---
Discharge Instructions CONDITION Patient Condition: Good HOME CARE INSTRUCTIONS: Special Diet: low chol/fat ACTIVITY: Activity Restrictions: Slowly Increase Activity Rest between Activity Avoid heavy lifting Avoid Heavy Housework FOLLOW UP/APPOINTMENTS Appointments follow up with his own PMD through HMO insurance in 1-2 week after discahrge . follow up with Dr.Kalpesh madrid in 2-3 week for his CKD VIOLET MADRID MD May 25, 2016 10:40
[2016-05-25] MEDS ORDERED: METR500T PO (10:44)
[2016-05-25] MEDS ORDERED: MAGNESIUM OXIDE 400 MG TAB PO ONE (11:09)
[2016-05-25] MEDS ORDERED: MAGNESIUM SULFATE 2 GM/50 ML 50 ML IVPB SCH (12:00)
--- NOTE | 2016-05-27 11:37 | DS ---
DATE OF ADMISSION: 05/22/2016 DATE OF DISCHARGE: 05/25/2016 FINAL DISCHARGE DIAGNOSES: 1. Abdominal pain secondary to acute gastritis. 2. Hypertension, accelerated. 3. History of chronic kidney disease stage III secondary to hypertensive nephrosclerosis. 4. Anemia of chronic disease. 5. History of alcohol abuse. 6. Hypokalemia symptomatic. 7. History of cerebrovascular accident. 8. History of Clostridium difficile colitis. 9. Acute gastroenteritis. CONSULTATIONS DONE DURING THIS HOSPITALIZATION: tiller worker consult. HOSPITAL COURSE: This is a 60-year-old male with a past medical history of hypertension, CKD second mauri to hypertensive nephrosclerosis, dyslipidemia, history of alcohol abuse, who presented with a co mplaint of abdominal pain. Due to his history of Clostridium difficile before, the patient gets adm itted for possible gastroenteritis and was treated with IV antibiotics, ciprofloxacin and Flagyl. T he patient continues to complain of diarrhea and abdominal pain. He was treated and remains symptom atically better, he was given IV fluids, the pain was controlled and he is getting discharged home w ith a prescription of Flagyl for his Clostridium difficile colitis and also for Ativan p.r.n. anxiet y. DISPOSITION: To home. DISCHARGE CONDITION: Stable and improved compared to admission. DISCHARGE ACTIVITIES: As tolerated, slowly resume to the normal baseline activity. DISCHARGE DIET: A soft consistency regular diet. DISCHARGE MEDICATIONS: As per medical reconciliation. DISCHARGE FOLLOWUP AND INSTRUCTIONS: 1. The patient is to follow up with his own primary care doctor through his HMO insurance 1 to 2 we eks after discharge. 2. The patient is to follow up with nephrology, Dr. Violet Wilson in outpatient in 1 to 2 weeks aft er discharge. He has been explained about the discharge plan and followup instructions. He underst ood and verbalized understanding. Dictated By: VIOLET WILSON MD, KP/RIZWANA Conf#: [id number] DID#: [id number]
== END 2016-05-25 11:45 | disposition home or self-care (01) | DRG 392 ==
LOC: E/R 14:06 → MS4 21:37 → PP2 05-24 00:11 → MS2 05-24 22:02
PROVIDERS: ADMIT Internal Medicine; ATTEND Internal Medicine
DX: K29.00 Acute gastritis without bleeding (principal); I13.10 Hypertensive heart and chronic kidney disease without heart failure, with stage 1 through stage 4 chronic kidney disease, or unspecified chronic kidney disease; N18.3 Chronic kidney disease, stage 3 (moderate); F41.9 Anxiety disorder, unspecified; G47.00 Insomnia, unspecified; E78.5 Hyperlipidemia, unspecified; F10.10 Alcohol abuse, uncomplicated; K52.9 Noninfective gastroenteritis and colitis, unspecified; R11.2 Nausea with vomiting, unspecified; K57.10 Diverticulosis of small intestine without perforation or abscess without bleeding; E87.6 Hypokalemia; D63.8 Anemia in other chronic diseases classified elsewhere; Z86.73 Personal history of transient ischemic attack (TIA), and cerebral infarction without residual deficits; Z98.890 Other specified postprocedural states
CPT/HCPCS: 36415; 74177; 80048; 80053; 81001; 81003; 82150; 83690; 83735; 84484; 85025; 85610; 85730; 86850; 86900; 86901; 93005; 96374; 96375; 96376; C9113; J0360; J0744; J2270; J2405; J2765; J3475; J7042; Q9967

== ENCOUNTER 2016-06-22 17:03 | Emergency (ER) | payer OTHER ==
[~2016-06-22] VITALS: Ht 170.2 cm; Wt 70.0 kg
[~2016-06-22 17:03] MED LIST changes: -ALPR0.25 PO; -AMLO-218 PO; +AMLO5TAB4 PO; +APR50 PO; -ASPI-664 PO; -ATOR20TA38 PO; +ATOR40TA68 PO; +CARV12.579 PO; -CITA20TA11 PO; +CLON-379 PO; +FAMO20TA18 PO; -HYDR-3671 PO; -IMO2 PO; +LOSA50TA6 PO; -NEPH PO; +OLAN5TAB5 PO; +PARO20TA58 PO; -ZOLP5TAB PO
[2016-06-22 17:12] VITALS: Ht 170.2 cm; Wt 70.0 kg
[2016-06-22] MEDS ORDERED: ONDANSETRON 4 MG INJ IV STA (17:24)
[2016-06-22] MEDS ORDERED: SOD CHLORIDE 0.9% 1,000 ML IV STA (17:24)
[2016-06-22 18:00] LABS: ADD SCAN DIFF NO
[2016-06-22 18:01] LABS: BASOPHILS % 0.1 % (0.0-2.0); EOSINOPHILS # 0.8 10^3/ul (0.0-0.5); EOSINOPHILS % 11.5 % (0.0-7.0); HEMATOCRIT 26.6 % (42.0-52.0); HEMOGLOBIN 8.6 g/dl (14.0-18.0); LYMPHOCYTES % 14.9 % (15.0-51.0); MEAN CORPUSCULAR HEMOGLOBIN 29.1 pg (29.0-33.0); MEAN CORPUSCULAR HGB CONC 32.3 g/dl (32.0-37.0); MEAN CORPUSCULAR VOLUME 89.9 fl (82.0-101.0); MEAN PLATELET VOLUME 11.2 fl (7.4-10.4); MONOCYTE # 0.8 10^3/ul (0.3-0.9); MONOCYTES % 11.3 % (0.0-11.0); NEUTROPHIL # 4.2 10^3/ul (1.6-7.5); NEUTROPHILS % 60.2 % (39.0-77.0); PLATELET COUNT 135 10^3/UL (140-415); RED BLOOD COUNT 2.96 10^6/ul (4.70-6.10); RED CELL DISTRIBUTION WIDTH 15.2 % (11.5-14.5)
[2016-06-22 18:14] LABS: CHLORIDE 104 mmol/L (97-110); POTASSIUM 4.7 mmol/L (3.5-5.1); SODIUM 141 mmol/L (135-144)
[2016-06-22 18:16] LABS: CREATININE 1.35 mg/dl (0.61-1.24)
[2016-06-22 18:17] LABS: ANION GAP 18 (8-16); BLOOD UREA NITROGEN 22 mg/dl (7-20); CALCIUM 9.7 mg/dl (8.4-10.2); CARBON DIOXIDE 24 mmol/L (21-31); GLUCOSE 102 mg/dl (70-220)
[2016-06-22 18:45] LABS: TROPONIN-I < 0.012 ng/ml (0.00-0.12)
[2016-06-22] MEDS ORDERED: ONDA4TAB14 PO (18:51)
[2016-06-22 18:53] VITALS: BP 135/67; PULSE 83; RESP 18; TEMP 98.9
--- NOTE | 2016-06-22 19:48 | ERD ---
ER Documentation Chief Complaint Date/Time DATE: 06/22/16 TIME: 19:44 Chief Complaint BIB RA FOR EVAL OF NECK PAIN PT IN HALO SX MAY HPI Patient is a 60-year-old male with hypertension who presents with nausea. He was brought in by ambulance. He said that he had nausea and felt like the room was "spinning". He was recently discharged from a hospital today and was sent to a nursing facility. The patient says that he felt like he would fall and that nobody was going to take care of him at this facility. I did receive a call from Dr. Hernández who is the doctor that oversees this facility and she said that the facility just received them today and that "he was unhappy that he had a roommate". Upon review of old medical records this is the patient's 11th visit to the ER since 2014. ROS All systems reviewed and are negative except as per history of present illness. Medications Home Meds Active Scripts Ondansetron (Ondansetron Odt) 4 Mg Tab.rapdis, 4 MG PO Q6H Y for NAUSEA AND/OR VOMITING, #30 TAB Prov:KENYA WILKINSON MD 06/22/16 Metronidazole* (Flagyl*) 500 Mg Tablet, 500 MG PO TID for DIARRHEA, #21 TAB Prov:VIOLET WILSON MD 05/25/16 Atenolol* (Tenormin*) 50 Mg Tab, 50 MG PO BID for 30 Days, TAB Prov:DANILO SINGH NP 07/22/15 Reported Medications Losartan Potassium* (Losartan Potassium*) 50 Mg Tablet, 50 MG PO BID, TAB 05/22/16 Carvedilol* (Carvedilol*) 12.5 Mg Tablet, 12.5 MG PO BID, #60 TAB 05/22/16 Trazodone Hcl* (Desyrel*) 100 Mg Tab, 100 MG PO QHS, #30 TAB 05/22/16 Paroxetine Hcl* (Paxil*) 20 Mg Tablet, 20 MG PO DAILY, TAB 05/22/16 Olanzapine* (Zyprexa*) 5 Mg Tablet, 5 MG PO DAILY, #30 TAB 05/22/16 Atorvastatin* (Atorvastatin*) 40 Mg Tablet, 40 MG PO QHS, #30 TAB 05/22/16 Amlodipine Besylate* (Norvasc*) 5 Mg Tablet, 5 MG PO DAILY, TAB 05/22/16 Clonidine Hcl* (Clonidine Hcl*) 0.1 Mg Tab, 0.1 MG PO QAM, TAB TAKE 2ND DOSAGE IN THE PM IF NEEDED 05/22/16 Hydralazine Hcl* (Hydralazine Hcl*) 50 Mg Tab, 50 MG PO BID, #120 TAB 05/22/16 Famotidine* (Famotidine*) 20 Mg Tablet, 20 MG PO BID, #60 TAB 05/22/16 Allergies Allergies: Coded Allergies: No Known Allergy (Unverified , 06/22/16) PMhx/Soc History of Surgery: Yes (halo placed) Anesthesia Reaction: No Hx Neurological Disorder: No Hx Respiratory Disorders: No Hx Cardiac Disorders: Yes (HTN, dyslipidemia) Hx Psychiatric Problems: Yes (alcohol abuse) Hx Miscellaneous Medical Probl: No Hx Alcohol Use: Yes Hx Tobacco Use: No Smoking Status: Never smoker FmHx Family History: No diabetes Physical Exam Vitals Vital Signs Date Time Temp Pulse Resp B/P Pulse Ox O2 Delivery O2 Flow Rate FiO2 06/22/16 18:53 98.9 83 18 135/67 100 Room Air 06/22/16 17:12 97.9 70 18 140/70 100 Physical Exam Const: Patient has a halo in place but no distress Head: Atraumatic Eyes: Normal Conjunctiva ENT: Normal External Ears, Nose and Mouth. Neck: Full range of motion..~ No meningismus. Resp: Clear to auscultation bilaterally Cardio: Regular rate and rhythm, no murmurs Abd: Soft, non tender, non distended. Normal bowel sounds Skin: No petechiae or rashes Back: No midline or flank tenderness Ext: No cyanosis, or edema Neur: Awake and alert, no slurred speech, no weakness of the upper or lower extremities Psych: Normal Mood and Affect Result Diagram: 06/22/16 1740 06/22/16 1740 Results 24 hrs Laboratory Tests Test 06/22/16 17:40 Anion Gap 18 Basophils # 0.010^3/ul Basophils % 0.1% Blood Urea Nitrogen 22mg/dl Calcium Level 9.7mg/dl Carbon Dioxide Level 24mmol/L Chloride Level 104mmol/L Creatinine 1.35mg/dl Eosinophils # 0.810^3/ul Eosinophils % 11.5% Glucose Level 102mg/dl Hematocrit 26.6% Hemoglobin 8.6g/dl Lymphocytes # 1.010^3/ul Lymphocytes % 14.9% Mean Corpuscular Hemoglobin 29.1pg Mean Corpuscular Hemoglobin Concent 32.3g/dl Mean Corpuscular Volume 89.9fl Mean Platelet Volume 11.2fl Monocytes # 0.810^3/ul Monocytes % 11.3% Neutrophils # 4.210^3/ul Neutrophils % 60.2% Nucleated Red Blood Cells # 0.010^3/ul Nucleated Red Blood Cells % 0.0/100WBC Platelet Count 13275^3/UL Potassium Level 4.7mmol/L Red Blood Count 2.9610^6/ul Red Cell Distribution Width 15.2% Sodium Level 141mmol/L Troponin I < 0.012ng/ml White Blood Count 7.010^3/ul Current Medications Medications (Trade) Dose Ordered Sig/Sharda Route PRN Reason Start Time Stop Time Status Last Admin Dose Admin Sodium Chloride (NS) 1,000 ml @ 1,000 mls/hr Q1H STAT IV 06/22/16 17:24 06/22/16 18:23 DC 06/22/16 18:01 Ondansetron HCl (Zofran Inj) 4 mg ONCE STAT IV 06/22/16 17:24 06/22/16 17:25 DC 06/22/16 18:02 Procedures/MDM EKG read by me: Rate/Rhythm: Regular rate and rhythm at a normal rate Intervals: Normal Impression: No evidence of ischemia or arrhythmia Patient is a 60-year-old male who presents with nausea and dizziness. The patient has anemia but does not require transfusion at this time. Other electrolytes are basically normal. EKG shows no signs of ischemia. At this point I believe outpatient management is appropriate. I believe there may be an element of social issue here given the fact that the patient called 911 because he did not like the fact that he was put in a room with a roommate. I doubt stroke or acute coronary syndrome or other serious etiology. The patient will be discharged back to his nursing facility. Departure Diagnosis: Primary Impression: Dizziness Additional Impressions: Nausea Anemia Anemia type: unspecified type Qualified Code: D64.9 - Anemia, unspecified type Condition: Fair Patient Instructions: Nausea, Dizziness, Unk Cause Referrals: Your doctor Additional Instructions: Call your primary care doctor TOMORROW for an appointment during the next 1-2 days.See the doctor sooner or return here if your condition worsens before your appointment time. KENYA WILKINSON MD Jun 22, 2016 19:48
== END 2016-06-22 22:03 | disposition home or self-care (01) ==
LOC: E/R 17:03
DX: R42 Dizziness and giddiness (principal); D64.9 Anemia, unspecified; I10 Essential (primary) hypertension
CPT/HCPCS: 36415; 80048; 84484; 85025; 93005; 96374; J2405; J7030; Z7502

== ENCOUNTER 2016-07-04 11:22 | Inpatient (IN) | payer OTHER ==
[~2016-07-04] VITALS: Ht 167.6 cm; Wt 75.0 kg
[~2016-07-04 11:22] MED LIST changes: +ONDA4TAB14 PO
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
--- NOTE | 2016-07-04 12:13 | RADRPT ---
PROCEDURE: Chest x-ray CLINICAL INDICATION: Syncope TECHNIQUE: Chest single view COMPARISON: None FINDINGS: The heart is normal in size. The pulmonary vessels are normal in caliber. The lungs are clear. Th e costophrenic angles are sharp. The visualized bony thorax is unremarkable. There is an external f ixator device in place IMPRESSION: No acute cardiopulmonary disease. RPTAT: HH .Taye Tatum MD, MD Date Time Electronically viewed and signed by .Taye Tatum MD, on 07/04/2016 12:13 .W/
[2016-07-04 12:43] LABS: ADD SCAN DIFF NO
[2016-07-04 12:47] LABS: BASOPHILS % 0.5 % (0.0-2.0); EOSINOPHILS % 0.5 % (0.0-7.0); HEMATOCRIT 34.2 % (42.0-52.0); HEMOGLOBIN 10.8 g/dl (14.0-18.0); LYMPHOCYTES # 0.9 10^3/ul (0.8-2.9); LYMPHOCYTES % 15.5 % (15.0-51.0); MEAN CORPUSCULAR HEMOGLOBIN 28.8 pg (29.0-33.0); MEAN CORPUSCULAR HGB CONC 31.6 g/dl (32.0-37.0); MEAN CORPUSCULAR VOLUME 91.2 fl (82.0-101.0); MEAN PLATELET VOLUME 9.7 fl (7.4-10.4); MONOCYTE # 0.4 10^3/ul (0.3-0.9); MONOCYTES % 6.8 % (0.0-11.0); NEUTROPHIL # 4.6 10^3/ul (1.6-7.5); NEUTROPHILS % 76.4 % (39.0-77.0); PLATELET COUNT 223 10^3/UL (140-415); RED BLOOD COUNT 3.75 10^6/ul (4.70-6.10); RED CELL DISTRIBUTION WIDTH 15.5 % (11.5-14.5)
[2016-07-04 12:55] LABS: INR 0.97; PROTIME 12.9 Sec (12.2-14.2)
[2016-07-04 13:06] LABS: CHLORIDE 110 mmol/L (97-110); POTASSIUM 4.4 mmol/L (3.5-5.1); SODIUM 147 mmol/L (135-144)
[2016-07-04 13:09] LABS: ANION GAP 22 (8-16); BLOOD UREA NITROGEN 25 mg/dl (7-20); CARBON DIOXIDE 19 mmol/L (21-31); CREATININE 1.46 mg/dl (0.61-1.24)
[2016-07-04 13:10] LABS: CALCIUM 9.9 mg/dl (8.4-10.2); GLUCOSE 93 mg/dl (70-220); MAGNESIUM 1.7 mg/dl (1.7-2.5)
[2016-07-04 13:14] LABS: ETHANOL < 10.0 mg/dl
--- NOTE | 2016-07-04 13:49 | RADRPT ---
PROCEDURE: CT Brain without contrast. CLINICAL INDICATION: 60-year-old male with syncope. TECHNIQUE: A CT of the brain was performed on a high-resolution CT scanner utilizing a low dose te chnique with axial imaging from the skull base through the vertex without IV contrast. Multiplanar reformatted images were made. Images were reviewed on a PACS workstation. The CTDIvol is 44.99 mGy and the DLP is 720.23 mGycm. One or more of the following dose reduction techniques were used: - Automated exposure control. - Adjustment of the mA and/or kV according to patient size. Use of iterative reconstruction technique. COMPARISON: CT scan brain 09/20/2015. FINDINGS: There are vascular calcifications in the cavernous and supracavernous portions of the internal carot id arteries. There is a tiny low attached to the outer table of the skull by external pins. There a re multiple streak artifacts related to the halo. The fourth, third and lateral ventricles are mild ly dilated with proportional sulcal dilatation noted. There is a small old 5 mm lacunar infarct in t he left extreme capsule. Portions of the brain parenchyma are poorly visualized due to streak artif acts which represents a limitation of the study. Within the limits and post no intracranial mass or hemorrhage is identified. The visible portions of the globes and extraocular muscles are normal. The paranasal sinuses are cl ear. The mastoid air cells and internal auditory canals are normal. The bony calvarium is intact. There is a metal plate attached to the right zygoma. IMPRESSION: 1. Cerebral and cerebellar atrophy. Stable old 5 mm lacunar infarct in the left extreme capsule. 2. An external halo is attached to the skull. 3. Portions of the brain foramen are not evaluated secondary to streak artifacts from the halo. RPTAT:AAJJ Physician Aranza Date Time Electronically viewed and signed by Physician Aranza on 07/04/2016 13:49 VITA/
[2016-07-04] MEDS ORDERED: LORAZEPAM 2 MG INJ IV ONE ×2 (14:00→18:30)
[2016-07-04] MEDS ORDERED: NACL 0.9% 3 ML SYG IV SCH (15:30)
[2016-07-04] MEDS ORDERED: DOCUSATE SODIUM 100 MG CAP PO PRN (15:30)
[2016-07-04] MEDS ORDERED: THIAMINE 100 MG TAB PO ONE (15:30)
[2016-07-04] MEDS ORDERED: BISACODYL (EC) 5 MG TAB PO PRN (15:30)
[2016-07-04] MEDS ORDERED: ONDANSETRON (ODT) 4 MG TAB ODT PRN (15:30)
[2016-07-04] MEDS ORDERED: HYDROCODONE/APAP (5/325) TAB PO PRN (15:30)
[2016-07-04] MEDS ORDERED: LABETALOL HCL 20MG INJ ONE (15:44)
[2016-07-04] MEDS ORDERED: LABETALOL HCL 20MG INJ IV ONE (16:00)
[2016-07-04 16:41] VITALS: TEMP 99.3
[2016-07-04] MEDS ORDERED: FAMOTIDINE 20 MG TAB PO SCH (21:00)
[2016-07-04] MEDS: morphine 2 MG INJ IV PRN (21:06)
[2016-07-04] MEDS: ATORVASTATIN 40 MG TAB PO SCH (21:36)
[2016-07-04] MEDS: LOSARTAN 50 MG TAB PO SCH (21:36)
[2016-07-04] MEDS: FAMOTIDINE 20 MG TAB PO SCH (21:38)
[2016-07-04] MEDS ORDERED: GUAIFENESIN/DM 5ML CUP PO PRN (22:00)
[2016-07-04] MEDS: ALPRAZOLAM 0.25 MG TAB PO SCH (22:32)
[2016-07-04 22:40] VITALS: PULSE 101
[2016-07-04 22:42] VITALS: Ht 167.6 cm; Wt 75.0 kg
[2016-07-05] VITALS (11 sets, daily range): BP systolic 158–180; BP diastolic 83–109; PULSE 79–97; RESP 16–22
[2016-07-05] MEDS: HYDROCODONE/APAP (10/325) TAB PO PRN ×2 (04:15→20:41)
[2016-07-05] MEDS: ALBUTEROL HFA 8 GM INHALER INH SCH ×4 (04:16→18:00)
[2016-07-05 07:38] LABS: ADD SCAN DIFF NO
[2016-07-05 07:51] LABS: BASOPHILS % 0.6 % (0.0-2.0); EOSINOPHILS # 0.1 10^3/ul (0.0-0.5); EOSINOPHILS % 1.2 % (0.0-7.0); HEMATOCRIT 32.2 % (42.0-52.0); HEMOGLOBIN 9.9 g/dl (14.0-18.0); LYMPHOCYTES % 14.2 % (15.0-51.0); MEAN CORPUSCULAR HEMOGLOBIN 28.5 pg (29.0-33.0); MEAN CORPUSCULAR HGB CONC 30.7 g/dl (32.0-37.0); MEAN CORPUSCULAR VOLUME 92.8 fl (82.0-101.0); MEAN PLATELET VOLUME 10.2 fl (7.4-10.4); MONOCYTE # 0.6 10^3/ul (0.3-0.9); MONOCYTES % 9.3 % (0.0-11.0); NEUTROPHILS % 74.4 % (39.0-77.0); PLATELET COUNT 208 10^3/UL (140-415); RED BLOOD COUNT 3.47 10^6/ul (4.70-6.10); RED CELL DISTRIBUTION WIDTH 15.6 % (11.5-14.5); WHITE BLOOD COUNT 6.8 10^3/ul (4.8-10.8)
[2016-07-05 08:06] LABS: POTASSIUM 4.2 mmol/L (3.5-5.1)
[2016-07-05 08:08] LABS: ALBUMIN/GLOBULIN RATIO 1.17; BILIRUBIN,INDIRECT 0.7 mg/dl (0-1.1); BILIRUBIN,TOTAL 0.7 mg/dl (0.2-1.3); CREATININE 1.58 mg/dl (0.61-1.24); TOTAL PROTEIN 7.4 g/dl (6.1-8.1)
[2016-07-05 08:09] LABS: CHOL/HDL RATIO 5.3 RATIO; MAGNESIUM 1.8 mg/dl (1.7-2.5); PHOSPHORUS 3.4 mg/dl (2.5-4.9)
[2016-07-05] MEDS: FAMOTIDINE 20 MG TAB PO SCH (08:17)
[2016-07-05] MEDS: ALPRAZOLAM 0.25 MG TAB PO SCH ×2 (08:17→20:53)
[2016-07-05] MEDS: PAROXETINE 20 MG TAB PO SCH (08:18)
[2016-07-05] MEDS: OLANZAPINE 5 MG TAB PO SCH (08:18)
[2016-07-05] MEDS: LOSARTAN 50 MG TAB PO SCH ×2 (08:19→20:52)
[2016-07-05] MEDS: hydrALAzine 20 MG INJ IV PRN (08:20)
[2016-07-05] MEDS: ENOXAPARIN 40 MG/0.4 ML SYG SC SCH (08:26)
[2016-07-05 08:29] LABS: THYROID STIMULATING HORMONE 3.24 MIU/L (0.465-4.680)
[2016-07-05 08:41] LABS: IRON 113 ug/dl (35-150)
[2016-07-05 08:41] LABS: CHOL/HDL RATIO 5.2 RATIO
[2016-07-05 08:50] LABS: TOTAL IRON BINDING CAPACITY 262 ug/dl (241-421)
--- NOTE | 2016-07-05 11:18 | PN ---
Date/Time of Note Date/Time of Note DATE: 07/05/16 TIME: 11:15 Assessment/Plan VTE Prophylaxis VTE Prophylaxis Intervention: LMWH Lines/Catheters IV [facility] Saline Lock Urinary Cath still in place: No Assessment/Plan Chief Complaint/Hosp Course Subjective: Occasional dizziness. No further syncope. No arrhythmias. Orthostatics were borderline. Objective: BP high. Orthostatics borderline. Physical examination No pallor droop. Halo intact Regular, no murmur rub gallop Clear bilaterally Bowel sounds positive, nontender, nondistended, no RR G Extremities: No edema Neuro: Nonfocal Assessment/plan 1. Syncope, probably orthostatic related. Stable hydrate. Check TSH 2. Recent C2 fracture. Stable continue halo. To visit [place] Dr. Macias on the 3. Failure to thrive, consider snf. Wants to speak with social service. Discharge anticipated tomorrow. 4. Anemia. Asymptomatic, stool occult ordered 5. Hypertension, out of control. Adjust therapy 6. Cough, treat bronchitis 7. History of stroke. Continue risk factor modification Problems: Exam/Review of Systems Vital Signs Vitals Vital Signs Date Time Temp Pulse Resp B/P Pulse Ox O2 Delivery O2 Flow Rate FiO2 07/05/16 10:30 82 180/109 79 179/107 163/104 07/05/16 07:58 98.5 20 95 07/05/16 00:15 Room Air Results Result Diagram: 07/05/16 0635 07/05/16 0635 Results 24 hrs Laboratory Tests Test 07/04/16 12:30 07/05/16 06:02 07/05/16 06:35 Activated Partial Thromboplast Time 30.0 Anion Gap 22 H 20 H Basophils # 0.0 0.0 Basophils % 0.5 0.6 Blood Urea Nitrogen 25 H 31 H Calcium Level 9.9 9.0 Carbon Dioxide Level 19 L 20 L Chloride Level 110 107 Creatinine 1.46 H 1.58 H Eosinophils # 0.0 0.1 Eosinophils % 0.5 1.2 Ethyl Alcohol Level < 10.0 Glucose Level 93 93 Hematocrit 34.2 #L 32.2 L Hemoglobin 10.8 #L 9.9 L INR International Normalized Ratio 0.97 Lymphocytes # 0.9 1.0 Lymphocytes % 15.5 14.2 L Magnesium Level 1.7 1.8 Mean Corpuscular Hemoglobin 28.8 L 28.5 L Mean Corpuscular Hemoglobin Concent 31.6 L 30.7 L Mean Corpuscular Volume 91.2 92.8 Mean Platelet Volume 9.7 10.2 Monocytes # 0.4 0.6 Monocytes % 6.8 9.3 Neutrophils # 4.6 5.0 Neutrophils % 76.4 74.4 Nucleated Red Blood Cells # 0.0 0.0 Nucleated Red Blood Cells % 0.0 0.0 Platelet Count 223 # 208 Potassium Level 4.4 4.2 Prothrombin Time 12.9 Prothrombin Time Ratio 1.0 Red Blood Count 3.75 #L 3.47 L Red Cell Distribution Width 15.5 H 15.6 H Sodium Level 147 H 143 White Blood Count 6.0 6.8 Iron Level 113 Percent Iron Saturation 43 Total Iron Binding Capacity 262 Alanine Aminotransferase (ALT/SGPT) 31 Albumin 4.0 Albumin/Globulin Ratio 1.17 Alkaline Phosphatase 61 Aspartate Amino Transf (AST/SGOT) 22 Cholesterol Level 163 Cholesterol/HDL Ratio 5.2 Direct Bilirubin 0.00 Globulin 3.40 H HDL Cholesterol 31 Hemoglobin A1c 5.1 Indirect Bilirubin 0.7 LDL Cholesterol, Calculated 63 Phosphorus Level 3.4 Thyroid Stimulating Hormone (TSH) 3.240 Total Bilirubin 0.7 Total Protein 7.4 Triglycerides Level 346 H Vitamin B12 Level 338 Medications Medications Current Medications Ondansetron HCl (Zofran Inj) 4 mg Q6H PRN IV NAUSEA AND/OR VOMITING; Start at 15:30 Acetaminophen (Tylenol Tab) 650 mg Q6H PRN PO PAIN LEVEL 1-3 OR FEVER; Start at 15:30 Acetaminophen/ Hydrocodone Bitart ([place] (5/325)) 1 tab Q6H PRN PO MODERATE PAIN LEVEL 4-6; Start 07/04/16 at 15:30 Morphine Sulfate (morphine) 2 mg Q4H PRN IV SEVERE PAIN LEVEL 7-10 Last administered on 07/04/16t 21:06; Admin Dose 2 MG; Start 07/04/16 at 15:30 Docusate Sodium (Colace) 100 mg Q12H PRN PO CONSTIPATION; Start 07/04/16 at 15: 30 Bisacodyl (Dulcolax) 5 mg DAILY PRN PO CONSTIPATION; Start 07/04/16 at 15:30 Famotidine (Pepcid) 20 mg Q12 PO Last administered on 07/05/16 08:17; Admin Dose 20 MG; Start 07/04/16 at 21:00 Enoxaparin Sodium (Lovenox) 40 mg DAILY SC Last administered on 07/05/16 08:26 ; Admin Dose 40 MG; Start 07/05/16 at 09:00 Atorvastatin Calcium (Lipitor) 40 mg QHS PO Last administered on 07/04/16 21: 36; Admin Dose 40 MG; Start 07/04/16 at 21:00 Carvedilol (Coreg) 12.5 mg BID PO Last administered on 07/05/16 08:18; Admin Dose 12.5 MG; Start 07/04/16 at 21:00 Clonidine (Catapres) 0.1 mg QAM PO Last administered on 07/05/16 08:19; Admin Dose 0.1 MG; Start 07/05/16 at 09:00 Hydralazine HCl (Apresoline) 50 mg BID PO Last administered on 07/05/16 08:18 ; Admin Dose 50 MG; Start 07/04/16 at 21:00 Losartan Potassium (Cozaar) 50 mg BID PO Last administered on 07/05/16 08:19; Admin Dose 50 MG; Start 07/04/16 at 21:00 Olanzapine (Zyprexa) 5 mg DAILY PO Last administered on 07/05/16 08:18; Admin Dose 5 MG; Start 07/05/16 at 09:00 Ondansetron HCl (Zofran Odt) 4 mg Q6H PRN ODT NAUSEA AND/OR VOMITING; Start at 15:30 Paroxetine HCl (Paxil) 20 mg DAILY PO Last administered on 07/05/16 08:18; Admin Dose 20 MG; Start 07/05/16 at 09:00 Acetaminophen/ Hydrocodone Bitart ([place] (10/325)) 1 tab Q4 PRN PO MODERATE PAIN LEVEL 4-6 Last administered on 07/05/16 04:15; Admin Dose 1 TAB; Start at 22:00 Alprazolam (Xanax) 0.5 mg BID PO Last administered on 07/05/16 08:17; Admin Dose 0.5 MG; Start 07/04/16 at 22:00 Hydralazine HCl (Apresoline) 5 mg Q4 PRN IV ELEVATED SYSTOLIC BP Last administered on 07/05/16t 08:20; Admin Dose 5 MG; Start 07/04/16 at 22:00 Guaifenesin/ Dextromethorphan (Robitussin Dm Liquid Cup) 10 ml Q4 PRN PO COUGH ; Start 07/04/16 at 22:00 Albuterol (Ventolin Hfa) 2 puff Q6 INH ; Start 07/05/16 at 00:00 LESLEE MCKENZIE MD Jul 05, 2016 11:18
[2016-07-05] MEDS ORDERED: SOD CHLORIDE 0.9% 500 ML IV SCH ×2 (11:30→19:30)
[2016-07-05] MEDS: morphine 2 MG INJ IV PRN (12:34)
--- NOTE | 2016-07-05 17:00 | RADRPT ---
Vent Rate: 86 bpm RR Interval: 0 msec NE Interval: 156 msec QRS Duration: 94 msec QT Interval: 376 msec QTC Interval: 449 msec P-R-T [place]: 28 - -5 - 27 degrees Normal sinus rhythm Normal ECG Electronically Signed By: Esa Dumont [id number]
[2016-07-05] MEDS: ONDANSETRON 4 MG INJ IV PRN (18:34)
[2016-07-05] MEDS: ATORVASTATIN 40 MG TAB PO SCH (20:49)
[2016-07-06] VITALS (12 sets, daily range): BP systolic 106–156; BP diastolic 61–116; PULSE 70–81; RESP 18–20
[2016-07-06] MEDS: ALBUTEROL HFA 8 GM INHALER INH SCH ×4 (06:00→18:00)
[2016-07-06] MEDS: morphine 2 MG INJ IV PRN (06:16)
[2016-07-06] MEDS: FAMOTIDINE 20 MG TAB PO SCH (08:54)
[2016-07-06] MEDS: LOSARTAN 50 MG TAB PO SCH ×2 (08:54→20:59)
[2016-07-06] MEDS: ALPRAZOLAM 0.25 MG TAB PO SCH ×2 (08:54→20:58)
[2016-07-06] MEDS: PAROXETINE 20 MG TAB PO SCH (08:55)
[2016-07-06] MEDS: OLANZAPINE 5 MG TAB PO SCH (08:55)
[2016-07-06] MEDS: HYDROCODONE/APAP (10/325) TAB PO PRN ×2 (08:55→19:03)
[2016-07-06] MEDS: ENOXAPARIN 40 MG/0.4 ML SYG SC SCH (08:59)
[2016-07-06 09:13] LABS: BENZODIAZEPINES Negative (NEGATIVE)
[2016-07-06 09:24] LABS: BARBITURATES Negative (NEGATIVE); CANNABINOIDS Negative (NEGATIVE); COCAINE Negative (NEGATIVE); OPIATES Positive (NEGATIVE)
--- NOTE | 2016-07-06 16:15 | PN ---
Date/Time of Note Date/Time of Note DATE: 07/06/16 TIME: 16:12 Assessment/Plan VTE Prophylaxis VTE Prophylaxis Intervention: LMWH Lines/Catheters IV Catheter Type (from Nrs): Saline Lock Urinary Cath still in place: No Assessment/Plan Chief Complaint/Hosp Course Subjective: 07/05- Occ dizziness. No further syncope/ arrhythmias. Orthostatics were borderline. 07/06- no events. wants to speak with social group worker. Objective: BP improved. Physical examination No pallor/ droop. Halo intact Reg, no murmur rub gallop Ctab Bs + nt nd, no R/R/G Ext No edema Neuro: Nonfocal Assessment/plan 1. Syncope, probably orthostatic related. Stable hydrate, discharge. 2. Recent C2 fracture. Stable cont halo. To visit [facility] on the 3. FTT, consider snf. Wants to speak with social service. Discharge. 4. Anemia. Asymptomatic, stool occult ordered 5. Hypertension, improved 6. Cough, treat bronchitis 7. Ho stroke. Cont rfm 8. Nonadherence. Problems: Exam/Review of Systems Vital Signs Vitals Vital Signs Date Time Temp Pulse Resp B/P Pulse Ox O2 Delivery O2 Flow Rate FiO2 07/06/16 16:00 75 07/06/16 15:59 97.3 106/61 07/06/16 11:51 18 90 07/05/16 00:15 Room Air Intake and Output 07/05/16 07/05/16 07/06/16 15:00 23:00 07:00 Intake Total 1700 ml Output Total 900 ml Balance 800 ml Results Result Diagram: 07/05/16 0635 07/05/16 0635 Results 24 hrs Laboratory Tests Test 07/06/16 03:00 Urine Opiates Screen Positive Urine Barbiturates Negative Urine Amphetamines Screen Negative Urine Benzodiazepines Screen Negative Urine Cocaine Screen Negative Urine Cannabinoids Negative Medications Medications Current Medications Ondansetron HCl (Zofran Inj) 4 mg Q6H PRN IV NAUSEA AND/OR VOMITING Last administered on 07/05/16t 18:34; Admin Dose 4 MG; Start 07/04/16 at 15:30 Acetaminophen (Tylenol Tab) 650 mg Q6H PRN PO PAIN LEVEL 1-3 OR FEVER; Start at 15:30 Acetaminophen/ Hydrocodone Bitart ([place] (5/325)) 1 tab Q6H PRN PO MODERATE PAIN LEVEL 4-6; Start 07/04/16 at 15:30 Morphine Sulfate (morphine) 2 mg Q4H PRN IV SEVERE PAIN LEVEL 7-10 Last administered on 07/06/16 06:16; Admin Dose 2 MG; Start 07/04/16 at 15:30 Docusate Sodium (Colace) 100 mg Q12H PRN PO CONSTIPATION; Start 07/04/16 at 15: 30 Bisacodyl (Dulcolax) 5 mg DAILY PRN PO CONSTIPATION; Start 07/04/16 at 15:30 Enoxaparin Sodium (Lovenox) 40 mg DAILY SC Last administered on 07/06/16 08:59 ; Admin Dose 40 MG; Start 07/05/16 at 09:00 Atorvastatin Calcium (Lipitor) 40 mg QHS PO Last administered on 07/05/16 20: 49; Admin Dose 40 MG; Start 07/04/16 at 21:00 Losartan Potassium (Cozaar) 50 mg BID PO Last administered on 07/06/16 08:54; Admin Dose 50 MG; Start 07/04/16 at 21:00 Olanzapine (Zyprexa) 5 mg DAILY PO Last administered on 07/06/16 08:55; Admin Dose 5 MG; Start 07/05/16 at 09:00 Ondansetron HCl (Zofran Odt) 4 mg Q6H PRN ODT NAUSEA AND/OR VOMITING; Start at 15:30 Paroxetine HCl (Paxil) 20 mg DAILY PO Last administered on 07/06/16 08:55; Admin Dose 20 MG; Start 07/05/16 at 09:00 Acetaminophen/ Hydrocodone Bitart ([place] (10/325)) 1 tab Q4 PRN PO MODERATE PAIN LEVEL 4-6 Last administered on 07/06/16 08:55; Admin Dose 1 TAB; Start at 22:00 Alprazolam (Xanax) 0.5 mg BID PO Last administered on 07/06/16 08:54; Admin Dose 0.5 MG; Start 07/04/16 at 22:00 Hydralazine HCl (Apresoline) 5 mg Q4 PRN IV ELEVATED SYSTOLIC BP Last administered on 3/21/17at 08:20; Admin Dose 5 MG; Start 07/04/16 at 22:00 Guaifenesin/ Dextromethorphan (Robitussin Dm Liquid Cup) 10 ml Q4 PRN PO COUGH ; Start 07/04/16 at 22:00 Albuterol (Ventolin Hfa) 2 puff Q6 INH ; Start 07/05/16 at 00:00 Carvedilol (Coreg) 25 mg BID PO Last administered on 07/06/16 08:55; Admin Dose 25 MG; Start 07/05/16 at 21:00 Clonidine (Catapres) 0.1 mg BID PO Last administered on 07/06/16 08:55; Admin Dose 0.1 MG; Start 07/05/16 at 21:00 Famotidine (Pepcid) 20 mg DAILY PO Last administered on 07/06/16 08:54; Admin Dose 20 MG; Start 07/06/16 at 09:00 Hydralazine HCl (Apresoline) 75 mg TID PO Last administered on 07/06/16 13:48 ; Admin Dose 75 MG; Start 07/05/16 at 13:00 LESLEE MCKENZIE MD Jul 06, 2016 16:15
--- NOTE | 2016-07-06 16:18 | PDOCDIS ---
Discharge Instructions DIAGNOSIS Discharge Diagnosis: syncope CONDITION Patient Condition: Stable HOME CARE INSTRUCTIONS: Special Diet: Cardiac ACTIVITY: Activity Restrictions: Do not Drive FOLLOW UP/APPOINTMENTS Appointments pcp -[address] Farrukh [place] - 2-4wks LESLEE MCKENZIE MD Jul 06, 2016 16:18
[2016-07-06] MEDS ORDERED: CLON-379 PO (16:21)
[2016-07-06] MEDS ORDERED: LOSA50TA6 PO (16:21)
[2016-07-06] MEDS ORDERED: ACET325T40 PO (16:21)
[2016-07-06] MEDS ORDERED: UDROBDM PO (16:21)
[2016-07-06] MEDS ORDERED: CARV25TA79 PO (16:21)
[2016-07-06] MEDS ORDERED: APR50 PO (16:21)
--- NOTE | 2016-07-06 18:01 | DS ---
DATE OF ADMISSION: 07/04/2016 DATE OF DISCHARGE: 07/06/2016 PRIMARY CARE PHYSICIAN: Unknown. SEMIAUTOMATIC TAPER OPERATOR: None. DIAGNOSIS ON ADMISSION: Syncope. DIAGNOSES ON DISCHARGE: 1. Syncope. 2. Probable orthostatic hypovolemia. 3. Chronic hypertension. 4. Nonadherence. 5. Bronchitis. 6. Possible depression, benzodiazepine dependence. 7. Recent C2 fracture. 8. Deconditioning. 9. History of stroke. HOSPITAL COURSE: This is a 60-year-old gentleman admitted with syncope. He was found to have ortho statics which are borderline, probably due to an element of deconditioning. He is presently stable and fit for discharge. No arrhythmias on the monitor. No neurological deficits suggestive of strok e. No active bleed, etc. Recent C2 fracture. To continue halo. He has an appointment to visit his specialist later this mon. Due to his deconditioning, I would recommend he go to a jail facility. Disposition will be re-evaluated soon. In terms of his chronic hypertension, there is lots of fluctuation. Do not see any evidence of end- organ failure at this time. Additionally, I do not see any evidence of secondary etiology at this t bakari. However, he does require 4-drug therapy for stability. At this point in time, we will continu e care and re-evaluate as an outpatient as needed. There are issues of nonadherence which will comp licate any continuity of care. I did reinforce the risk of stroke and brain damage with the patient . DISCHARGE PLAN: The patient will be discharged to jail facility. DIET: Low salt, cholesterol. ACTIVITY: No driving. DURABLE MEDICAL EQUIPMENT: Halo. CODE STATUS: FULL. CONDITION: Fair. REASON FOR ADMISSION: Syncope. ALLERGIES: NO KNOWN DRUG ALLERGIES. BARRIERS TO DISCHARGE: None. PENDING TESTS: None. FUNCTIONAL STATUS: The patient is awake, alert, agrees to care plan and has options. LABORATORIES: Urine tox screen positive for opioids, potentially given in the ER. Alcohol level no rmal. INR 0.9. White cell count of 6.8, hemoglobin and hematocrit of 9 and 32, MCV 92, platelets o f 208. CMP unremarkable except for BUN and creatinine of 31 and 1.58. This is at his baseline. LF Ts okay. Triglycerides 340, total of 160, HDL of 32, LDL of 68. TSH 3.2. B12 level 338. A1c 5.1. IMAGING: CAT scan of brain: No acute process. Unable to do MRI. Stable old 5 mm lacunar infarct ____ external capsule. Chest x-ray: No acute process. Again, he is nonfocal on exam. DISCHARGE APPOINTMENTS: To follow up with primary 1 week post discharge from SNF. MEDICATIONS: Stopped medications: 1. Norvasc. 2. Atenolol. 3. Trazodone. Continued medications: 1. Losartan 50 mg b.i.d. 2. Lipitor 40. 3. Pepcid 20 b.i.d. 4. Zyprexa 5. 5. Zofran every 6 as needed. 6. Paxil 20. Altered medications: 1. Coreg now 25 mg twice daily. 2. Clonidine 0.1 mg now twice daily. 3. Hydralazine now 75 mg 3 times daily. New medications: 1. Robitussin as needed. 2. Tylenol as needed. Dictated By: LESLEE NEELY/RIZWANA Conf#: [id number] DID#: [id number]
[2016-07-06] MEDS: ATORVASTATIN 40 MG TAB PO SCH (20:58)
[2016-07-07] VITALS (8 sets, daily range): BP systolic 127–157; BP diastolic 82–91; PULSE 71–94; RESP 17–20
[2016-07-07] MEDS: ALBUTEROL HFA 8 GM INHALER INH SCH ×5 (00:37→23:59)
[2016-07-07] MEDS: ZOLPIDEM 5 MG TAB PO PRN (00:38)
[2016-07-07] MEDS: PAROXETINE 20 MG TAB PO SCH (09:30)
[2016-07-07] MEDS: OLANZAPINE 5 MG TAB PO SCH (09:30)
[2016-07-07] MEDS: FAMOTIDINE 20 MG TAB PO SCH (09:30)
[2016-07-07] MEDS: ALPRAZOLAM 0.25 MG TAB PO SCH ×2 (09:31→20:34)
[2016-07-07] MEDS: LOSARTAN 50 MG TAB PO SCH ×2 (09:31→20:35)
[2016-07-07] MEDS: ENOXAPARIN 40 MG/0.4 ML SYG SC SCH (09:34)
--- NOTE | 2016-07-07 10:50 | PN ---
Date/Time of Note Date/Time of Note DATE: 07/07/16 TIME: 10:48 Assessment/Plan VTE Prophylaxis VTE Prophylaxis Intervention: LMWH Lines/Catheters IV Catheter Type (from Nrs): Saline Lock Urinary Cath still in place: No Assessment/Plan Chief Complaint/Hosp Course Subjective: 07/05- Occ dizziness. No further syncope/ arrhythmias. Orthostatics were borderline. 07/06- no events. wants to speak with long term care social worker. 07/07-no events. Stable for discharge. He is fairly picky about placement and where he is going. I did reinforce, that nothing is ideal, and options are limited. Objective: vss PE No pallor. Halo intact Reg, no m/r/g Ctab Bs + nt nd, no R/R/G Ext No edema Neuro: Nonfocal Assessment/plan 1. Syncope, probably orthostatic related. Stable hydrated, discharge. 2. Recent C2 fracture. Stable cont halo. To visit [facility] on the 3. FTT, consider snf vs B&C. Wants to speak with social service. Discharge. 4. Anemia. Asymptomatic, stool occult ordered 5. Hypertension, improved/stable 6. Cough, treated bronchitis 7. Ho stroke. Cont rfm 8. Nonadherence. Problems: Exam/Review of Systems Vital Signs Vitals Vital Signs Date Time Temp Pulse Resp B/P Pulse Ox O2 Delivery O2 Flow Rate FiO2 07/07/16 08:09 71 07/07/16 07:40 98.2 20 157/91 95 07/05/16 00:15 Room Air Intake and Output 07/06/16 07/06/16 07/07/16 15:00 23:00 07:00 Intake Total 800 ml 240 ml Output Total 1200 ml 800 ml Balance -400 ml -560 ml Results Result Diagram: 07/05/16 0635 07/05/16 0635 Medications Medications Current Medications Ondansetron HCl (Zofran Inj) 4 mg Q6H PRN IV NAUSEA AND/OR VOMITING Last administered on 07/05/16t 18:34; Admin Dose 4 MG; Start 07/04/16 at 15:30 Acetaminophen (Tylenol Tab) 650 mg Q6H PRN PO PAIN LEVEL 1-3 OR FEVER; Start at 15:30 Acetaminophen/ Hydrocodone Bitart ([place] (5/325)) 1 tab Q6H PRN PO MODERATE PAIN LEVEL 4-6; Start 07/04/16 at 15:30 Morphine Sulfate (morphine) 2 mg Q4H PRN IV SEVERE PAIN LEVEL 7-10 Last administered on 07/06/16 06:16; Admin Dose 2 MG; Start 07/04/16 at 15:30 Docusate Sodium (Colace) 100 mg Q12H PRN PO CONSTIPATION; Start 07/04/16 at 15: 30 Bisacodyl (Dulcolax) 5 mg DAILY PRN PO CONSTIPATION; Start 07/04/16 at 15:30 Enoxaparin Sodium (Lovenox) 40 mg DAILY SC Last administered on 07/07/16 09:34 ; Admin Dose 40 MG; Start 07/05/16 at 09:00 Atorvastatin Calcium (Lipitor) 40 mg QHS PO Last administered on 07/06/16 20: 58; Admin Dose 40 MG; Start 07/04/16 at 21:00 Losartan Potassium (Cozaar) 50 mg BID PO Last administered on 07/07/16 09:31; Admin Dose 50 MG; Start 07/04/16 at 21:00 Olanzapine (Zyprexa) 5 mg DAILY PO Last administered on 07/07/16 09:30; Admin Dose 5 MG; Start 07/05/16 at 09:00 Ondansetron HCl (Zofran Odt) 4 mg Q6H PRN ODT NAUSEA AND/OR VOMITING; Start at 15:30 Paroxetine HCl (Paxil) 20 mg DAILY PO Last administered on 07/07/16 09:30; Admin Dose 20 MG; Start 07/05/16 at 09:00 Acetaminophen/ Hydrocodone Bitart ([place] ()) 1 tab Q4 PRN PO MODERATE PAIN LEVEL 4-6 Last administered on 07/06/16 19:03; Admin Dose 1 TAB; Start at 22:00 Alprazolam (Xanax) 0.5 mg BID PO Last administered on 07/07/16 09:31; Admin Dose 0.5 MG; Start 07/04/16 at 22:00 Hydralazine HCl (Apresoline) 5 mg Q4 PRN IV ELEVATED SYSTOLIC BP Last administered on 07/05/16 08:20; Admin Dose 5 MG; Start 07/04/16 at 22:00 Guaifenesin/ Dextromethorphan (Robitussin Dm Liquid Cup) 10 ml Q4 PRN PO COUGH ; Start 07/04/16 at 22:00 Albuterol (Ventolin Hfa) 2 puff Q6 INH Last administered on 07/07/16 00:37; Admin Dose 2 PUFF; Start 07/05/16 at 00:00 Carvedilol (Coreg) 25 mg BID PO Last administered on 07/07/16 09:31; Admin Dose 25 MG; Start 07/05/16 at 21:00 Clonidine (Catapres) 0.1 mg BID PO Last administered on 07/07/16 09:31; Admin Dose 0.1 MG; Start 07/05/16 at 21:00 Famotidine (Pepcid) 20 mg DAILY PO Last administered on 07/07/16 09:30; Admin Dose 20 MG; Start 07/06/16 at 09:00 Hydralazine HCl (Apresoline) 75 mg TID PO Last administered on 07/07/16 09:32 ; Admin Dose 75 MG; Start 07/05/16 at 13:00 Zolpidem Tartrate (Ambien) 5 mg HS PRN PO INSOMNIA Last administered on 00:38; Admin Dose 5 MG; Start 07/07/16 at 00:30 LESLEE MCKENZIE MD Jul 07, 2016 10:50
[2016-07-07] MEDS: ONDANSETRON 4 MG INJ IV PRN (12:38)
[2016-07-07] MEDS: ACETAMINOPHEN 325 MG TAB PO PRN (16:14)
[2016-07-07] MEDS: ATORVASTATIN 40 MG TAB PO SCH (20:34)
[2016-07-07] MEDS: morphine 2 MG INJ IV PRN (21:50)
[2016-07-08] MEDS: ZOLPIDEM 5 MG TAB PO PRN (00:10)
[2016-07-08] MEDS: morphine 2 MG INJ IV PRN (05:06)
[2016-07-08] MEDS: ALBUTEROL HFA 8 GM INHALER INH SCH ×3 (05:35→18:00)
[2016-07-08 07:41] VITALS: BP 137/80; RESP 20
[2016-07-08] MEDS: PAROXETINE 20 MG TAB PO SCH (10:05)
[2016-07-08] MEDS: FAMOTIDINE 20 MG TAB PO SCH (10:05)
[2016-07-08] MEDS: ALPRAZOLAM 0.25 MG TAB PO SCH ×2 (10:06→20:56)
[2016-07-08] MEDS: LOSARTAN 50 MG TAB PO SCH ×2 (10:08→20:56)
[2016-07-08] MEDS: OLANZAPINE 5 MG TAB PO SCH (10:17)
[2016-07-08] MEDS: ENOXAPARIN 40 MG/0.4 ML SYG SC SCH (10:22)
--- NOTE | 2016-07-08 11:37 | PN ---
Date/Time of Note Date/Time of Note DATE: 07/08/16 TIME: 11:36 Assessment/Plan VTE Prophylaxis VTE Prophylaxis Intervention: LMWH Lines/Catheters IV Catheter Type (from Nrs): Saline Lock Urinary Cath still in place: No Assessment/Plan Chief Complaint/Hosp Course Subjective: 07/05- Occ dizziness. No further syncope/ arrhythmias. Orthostatics were borderline. 07/06- no events. wants to speak with social insurance adviser. 07/07-no events. Stable for discharge. He is fairly picky about placement and where he is going. I did reinforce, that nothing is ideal, and options are limited. 07/08 subjective dizziness. No loss of speech vision. Still with gait dysfunction. Objective: vss PE No pallor. Halo intact Reg, no m/r/g Ctab Bs + nt nd, no R/R/G Ext No edema Neuro: Nonfocal Assessment/plan 1. Syncope, probably orthostatic related. Stable hydrated, discharge. 2. Recent C2 fracture. Stable cont halo. To visit [facility] on the 3. FTT, consider snf vs B&C. Wants to speak with social service. Discharge. 4. Anemia. Asymptomatic, stool occult ordered 5. Hypertension, improved/stable 6. Cough, treated bronchitis 7. Ho stroke. Cont rfm 8. Nonadherence. 9. Dizziness due to deconditioning Problems: Exam/Review of Systems Vital Signs Vitals Vital Signs Date Time Temp Pulse Resp B/P Pulse Ox O2 Delivery O2 Flow Rate FiO2 07/08/16 07:41 97.5 94 20 137/80 96 07/05/16 00:15 Room Air Intake and Output 07/07/16 07/07/16 07/08/16 15:00 23:00 07:00 Intake Total 960 ml 300 ml Output Total 1000 ml Balance 960 ml -700 ml Results Result Diagram: 07/05/1635 07/05/16 06 Medications Medications Current Medications Ondansetron HCl (Zofran Inj) 4 mg Q6H PRN IV NAUSEA AND/OR VOMITING Last administered on 07/07/16 12:38; Admin Dose 4 MG; Start 07/04/16 at 15:30 Acetaminophen (Tylenol Tab) 650 mg Q6H PRN PO PAIN LEVEL 1-3 OR FEVER Last administered on 07/07/16 16:14; Admin Dose 650 MG; Start 07/04/16 at 15:30 Acetaminophen/ Hydrocodone Bitart ([place] (5/325)) 1 tab Q6H PRN PO MODERATE PAIN LEVEL 4-6; Start 07/04/16 at 15:30 Morphine Sulfate (morphine) 2 mg Q4H PRN IV SEVERE PAIN LEVEL 7-10 Last administered on 07/08/16 05:06; Admin Dose 2 MG; Start 07/04/16 at 15:30 Docusate Sodium (Colace) 100 mg Q12H PRN PO CONSTIPATION; Start 07/04/16 at 15: 30 Bisacodyl (Dulcolax) 5 mg DAILY PRN PO CONSTIPATION; Start 07/04/16 at 15:30 Enoxaparin Sodium (Lovenox) 40 mg DAILY SC Last administered on 07/08/16 10:22 ; Admin Dose 40 MG; Start 07/05/16 at 09:00 Atorvastatin Calcium (Lipitor) 40 mg QHS PO Last administered on 07/07/16 20: 34; Admin Dose 40 MG; Start 07/04/16 at 21:00 Losartan Potassium (Cozaar) 50 mg BID PO Last administered on 07/08/16 10:08; Admin Dose 50 MG; Start 07/04/16 at 21:00 Olanzapine (Zyprexa) 5 mg DAILY PO Last administered on 07/08/16 10:17; Admin Dose 5 MG; Start 07/05/16 at 09:00 Ondansetron HCl (Zofran Odt) 4 mg Q6H PRN ODT NAUSEA AND/OR VOMITING; Start at 15:30 Paroxetine HCl (Paxil) 20 mg DAILY PO Last administered on 07/08/16 10:05; Admin Dose 20 MG; Start 07/05/16 at 09:00 Acetaminophen/ Hydrocodone Bitart ([place] (10/325)) 1 tab Q4 PRN PO MODERATE PAIN LEVEL 4-6 Last administered on 07/06/16 19:03; Admin Dose 1 TAB; Start at 22:00 Alprazolam (Xanax) 0.5 mg BID PO Last administered on 07/08/16 10:06; Admin Dose 0.5 MG; Start 07/04/16 at 22:00 Hydralazine HCl (Apresoline) 5 mg Q4 PRN IV ELEVATED SYSTOLIC BP Last administered on 07/05/16 08:20; Admin Dose 5 MG; Start 07/04/16 at 22:00 Guaifenesin/ Dextromethorphan (Robitussin Dm Liquid Cup) 10 ml Q4 PRN PO COUGH ; Start 07/04/16 at 22:00 Albuterol (Ventolin Hfa) 2 puff Q6 INH Last administered on 07/08/16 05:35; Admin Dose 2 PUFF; Start 07/05/16 at 00:00 Carvedilol (Coreg) 25 mg BID PO Last administered on 07/08/16 10:07; Admin Dose 25 MG; Start 07/05/16 at 21:00 Clonidine (Catapres) 0.1 mg BID PO Last administered on 07/08/16 10:07; Admin Dose 0.1 MG; Start 07/05/16 at 21:00 Famotidine (Pepcid) 20 mg DAILY PO Last administered on 07/08/16 10:05; Admin Dose 20 MG; Start 07/06/16 at 09:00 Hydralazine HCl (Apresoline) 75 mg TID PO Last administered on 07/08/16 10:08 ; Admin Dose 75 MG; Start 07/05/16 at 13:00 Zolpidem Tartrate (Ambien) 5 mg HS PRN PO INSOMNIA Last administered on 00:10; Admin Dose 5 MG; Start 07/07/16 at 00:30 LESLEE MCKENZIE MD Jul 08, 2016 11:37
[2016-07-08 11:45] VITALS: BP 179/103; RESP 20
[2016-07-08] MEDS: hydrALAzine 20 MG INJ IV PRN (15:04)
[2016-07-08 15:56] VITALS: BP 175/105; RESP 20
[2016-07-08] MEDS: ACETAMINOPHEN 325 MG TAB PO PRN (16:56)
[2016-07-08 17:03] VITALS: BP 177/102
[2016-07-08 19:57] VITALS: BP 173/97; RESP 18
[2016-07-08] MEDS: ATORVASTATIN 40 MG TAB PO SCH (20:56)
[2016-07-08] MEDS ORDERED: ALBUTEROL HFA 8 GM INHALER INH PRN (23:00)
[2016-07-08] MEDS: NIFEdipine (XL) 60 MG TAB PO SCH (23:36)
[2016-07-09 00:30] VITALS: BP 139/85; RESP 16
[2016-07-09 04:15] VITALS: BP 134/89; RESP 18
[2016-07-09] MEDS: morphine 2 MG INJ IV PRN ×4 (04:51→20:48)
[2016-07-09 08:14] VITALS: BP 108/71; RESP 18
[2016-07-09] MEDS: ACETAMINOPHEN 325 MG TAB PO PRN (10:11)
[2016-07-09] MEDS: OLANZAPINE 5 MG TAB PO SCH (10:12)
[2016-07-09] MEDS: PAROXETINE 20 MG TAB PO SCH (10:12)
[2016-07-09] MEDS: NIFEdipine (XL) 60 MG TAB PO SCH (10:12)
[2016-07-09] MEDS: FAMOTIDINE 20 MG TAB PO SCH (10:13)
[2016-07-09] MEDS: LOSARTAN 50 MG TAB PO SCH ×2 (10:13→20:49)
[2016-07-09] MEDS: ALPRAZOLAM 0.25 MG TAB PO SCH ×2 (10:13→20:49)
[2016-07-09] MEDS: ENOXAPARIN 40 MG/0.4 ML SYG SC SCH (10:16)
[2016-07-09 11:59] VITALS: BP 144/76; RESP 18
--- NOTE | 2016-07-09 12:44 | PN ---
Date/Time of Note Date/Time of Note DATE: 07/09/16 TIME: 12:43 Assessment/Plan VTE Prophylaxis VTE Prophylaxis Intervention: LMWH Lines/Catheters IV Catheter Type (from [facility]): Saline Lock Urinary Cath still in place: No Assessment/Plan Chief Complaint/Hosp Course Subjective: 07/05- Occ dizziness. No further syncope/ arrhythmias. Orthostatics were borderline. 07/06- no events. wants to speak with social worker psychiatric. 07/07-no events. Stable for discharge. He is fairly picky about placement and where he is going. I did reinforce, that nothing is ideal, and options are limited. 07/08 subjective dizziness. No loss of speech vision. Still with gait dysfunction. 07/09-again subjective dizziness. No loss of speech vision. Pending snf placement. Objective: vss PE No pallor. Halo intact Reg, no m/r/g Ctab Bs + nt nd, no R/R/G Ext No edema Neuro: Nonfocal Assessment/plan 1. Syncope, probably orthostatic related. Stable hydrated, discharge. 2. Recent C2 fracture. Stable cont halo. To visit Chet Macias on the 3. FTT, consider snf vs B&C. appreciate social service assistance. Discharge. 4. Anemia. Asymptomatic, stool occult ordered 5. Hypertension, improved/stable 6. Cough, treated bronchitis 7. Ho stroke. Cont rfm 8. Nonadherence. 9. Dizziness due to deconditioning. Problems: Exam/Review of Systems Vital Signs Vitals Vital Signs Date Time Temp Pulse Resp B/P Pulse Ox O2 Delivery O2 Flow Rate FiO2 07/09/16 11:59 98.0 75 18 144/76 98 Intake and Output 07/08/16 07/08/16 07/09/16 15:00 23:00 07:00 Intake Total 720 ml 450 ml Output Total 1200 ml Balance 720 ml -750 ml Results Result Diagram: 07/05/16 0635 07/05/16 0635 Medications Medications Current Medications Ondansetron HCl (Zofran Inj) 4 mg Q6H PRN IV NAUSEA AND/OR VOMITING Last administered on 07/07/16 12:38; Admin Dose 4 MG; Start 07/04/16 at 15:30 Acetaminophen (Tylenol Tab) 650 mg Q6H PRN PO PAIN LEVEL 1-3 OR FEVER Last administered on 07/09/16 10:11; Admin Dose 650 MG; Start 07/04/16 at 15:30 Acetaminophen/ Hydrocodone Bitart ([place] (5/325)) 1 tab Q6H PRN PO MODERATE PAIN LEVEL 4-6; Start 07/04/16 at 15:30 Morphine Sulfate (morphine) 2 mg Q4H PRN IV SEVERE PAIN LEVEL 7-10 Last administered on 07/09/16 09:18; Admin Dose 2 MG; Start 07/04/16 at 15:30 Docusate Sodium (Colace) 100 mg Q12H PRN PO CONSTIPATION; Start 07/04/16 at 15: 30 Bisacodyl (Dulcolax) 5 mg DAILY PRN PO CONSTIPATION; Start 07/04/16 at 15:30 Enoxaparin Sodium (Lovenox) 40 mg DAILY SC Last administered on 07/09/16 10:16 ; Admin Dose 40 MG; Start 07/05/16 at 09:00 Atorvastatin Calcium (Lipitor) 40 mg QHS PO Last administered on 07/08/16 20: 56; Admin Dose 40 MG; Start 07/04/16 at 21:00 Losartan Potassium (Cozaar) 50 mg BID PO Last administered on 07/09/16 10:13; Admin Dose 50 MG; Start 07/04/16 at 21:00 Olanzapine (Zyprexa) 5 mg DAILY PO Last administered on 07/09/16 10:12; Admin Dose 5 MG; Start 07/05/16 at 09:00 Ondansetron HCl (Zofran Odt) 4 mg Q6H PRN ODT NAUSEA AND/OR VOMITING; Start at 15:30 Paroxetine HCl (Paxil) 20 mg DAILY PO Last administered on 07/09/16 10:12; Admin Dose 20 MG; Start 07/05/16 at 09:00 Acetaminophen/ Hydrocodone Bitart ([place] (10/325)) 1 tab Q4 PRN PO MODERATE PAIN LEVEL 4-6 Last administered on 07/06/16 19:03; Admin Dose 1 TAB; Start at 22:00 Alprazolam (Xanax) 0.5 mg BID PO Last administered on 07/09/16 10:13; Admin Dose 0.5 MG; Start 3/20/17 at 22:00 Hydralazine HCl (Apresoline) 5 mg Q4 PRN IV ELEVATED SYSTOLIC BP Last administered on 07/08/16 15:04; Admin Dose 5 MG; Start 07/04/16 at 22:00 Guaifenesin/ Dextromethorphan (Robitussin Dm Liquid Cup) 10 ml Q4 PRN PO COUGH ; Start 07/04/16 at 22:00 Carvedilol (Coreg) 25 mg BID PO Last administered on 07/09/16 10:13; Admin Dose 25 MG; Start 07/05/16 at 21:00 Clonidine (Catapres) 0.1 mg BID PO Last administered on 07/09/16 10:12; Admin Dose 0.1 MG; Start 07/05/16 at 21:00 Famotidine (Pepcid) 20 mg DAILY PO Last administered on 07/09/16 10:13; Admin Dose 20 MG; Start 07/06/16 at 09:00 Zolpidem Tartrate (Ambien) 5 mg HS PRN PO INSOMNIA Last administered on 00:10; Admin Dose 5 MG; Start 07/07/16 at 00:30 Albuterol (Ventolin Hfa) 2 puff Q6 PRN INH WHEEZING; Start 07/08/16 at 23:00 Hydralazine HCl (Apresoline) 100 mg TID PO Last administered on 07/09/16 10:12 ; Admin Dose 100 MG; Start 07/08/16 at 23:00 Nifedipine (Procardia Xl) 60 mg DAILY PO Last administered on 07/09/16 10:12; Admin Dose 60 MG; Start 07/08/16 at 23:00 LESLEE MCKENZIE MD Jul 09, 2016 12:44
[2016-07-09 16:23] VITALS: BP 146/76; RESP 18
[2016-07-09 20:17] VITALS: BP 126/77; RESP 20
[2016-07-09] MEDS: ATORVASTATIN 40 MG TAB PO SCH (20:49)
[2016-07-09] MEDS: HYDROCODONE/APAP (10/325) TAB PO PRN (23:02)
[2016-07-10] VITALS (7 sets, daily range): BP systolic 106–146; BP diastolic 60–90; RESP 17–20
[2016-07-10] MEDS: ZOLPIDEM 5 MG TAB PO PRN (00:16)
[2016-07-10] MEDS: morphine 2 MG INJ IV PRN (00:16)
[2016-07-10] MEDS: FAMOTIDINE 20 MG TAB PO SCH (09:51)
[2016-07-10] MEDS: PAROXETINE 20 MG TAB PO SCH (09:51)
[2016-07-10] MEDS: NIFEdipine (XL) 60 MG TAB PO SCH (09:51)
[2016-07-10] MEDS: ALPRAZOLAM 0.25 MG TAB PO SCH ×2 (09:52→22:45)
[2016-07-10] MEDS: LOSARTAN 50 MG TAB PO SCH ×2 (09:52→22:46)
[2016-07-10] MEDS: ENOXAPARIN 40 MG/0.4 ML SYG SC SCH (09:58)
[2016-07-10] MEDS: OLANZAPINE 5 MG TAB PO SCH (09:59)
[2016-07-10] MEDS: HYDROCODONE/APAP (10/325) TAB PO PRN (12:03)
--- NOTE | 2016-07-10 12:39 | PN ---
Date/Time of Note Date/Time of Note DATE: 07/10/16 TIME: 12:36 Assessment/Plan VTE Prophylaxis VTE Prophylaxis Intervention: LMWH Lines/Catheters [facility] Saline Lock Urinary Cath still in place: No Assessment/Plan Chief Complaint/Hosp Course Subjective: 07/05- Occ dizziness. No further syncope/ arrhythmias. Orthostatics were borderline. 07/06- no events. wants to speak with social sciences chair. 07/07-no events. Stable for discharge. He is fairly picky about placement and where he is going. I did reinforce, that nothing is ideal, and options are limited. 07/08 subjective dizziness. No loss of speech vision. Still with gait dysfunction. 07/09-again subjective dizziness. No loss of speech vision. Pending snf placement. 07/10 does not qualify for snf. Occ dizziness. [facility] per case mnger note. Objective: vss PE No pallor. Halo intact Reg, no m/r/g Ctab Bs + nt nd, no R/R/G Ext No edema Neuro: Nonfocal Assessment/plan 1. Syncope, probably orthostatic related. Stable hydrated, discharge to [facility] per case mger note.. 2. Recent C2 fracture. Stable cont halo. To visit [facility]t Macias on the 3. FTT, consider B&C. appreciate social service assistance. 4. Anemia. Asymptomatic, stool occult ordered 5. Hypertension, improved/stable 6. Cough, treated bronchitis 7. Ho stroke. Cont rfm 8. Nonadherence. 9. Dizziness due to deconditioning. Problems: Exam/Review of Systems Vital Signs Vitals Vital Signs Date Time Temp Pulse Resp B/P Pulse Ox O2 Delivery O2 Flow Rate FiO2 07/10/16 07:42 97.5 81 18 129/74 98 Intake and Output 07/09/16 07/09/16 07/10/16 15:00 23:00 07:00 Intake Total 800 ml 450 ml Output Total 900 ml 700 ml Balance -100 ml -250 ml Medications Medications Current Medications Ondansetron HCl (Zofran Inj) 4 mg Q6H PRN IV NAUSEA AND/OR VOMITING Last administered on 07/07/16t 12:38; Admin Dose 4 MG; Start 07/04/16 at 15:30 Acetaminophen (Tylenol Tab) 650 mg Q6H PRN PO PAIN LEVEL 1-3 OR FEVER Last administered on 07/09/16 10:11; Admin Dose 650 MG; Start 07/04/16 at 15:30 Acetaminophen/ Hydrocodone Bitart ([place] (5/325)) 1 tab Q6H PRN PO MODERATE PAIN LEVEL 4-6; Start 07/04/16 at 15:30 Morphine Sulfate (morphine) 2 mg Q4H PRN IV SEVERE PAIN LEVEL 7-10 Last administered on 07/10/16 00:16; Admin Dose 2 MG; Start 07/04/16 at 15:30 Docusate Sodium (Colace) 100 mg Q12H PRN PO CONSTIPATION; Start 07/04/16 at 15: 30 Bisacodyl (Dulcolax) 5 mg DAILY PRN PO CONSTIPATION; Start 07/04/16 at 15:30 Enoxaparin Sodium (Lovenox) 40 mg DAILY SC Last administered on 07/10/16 09:58 ; Admin Dose 40 MG; Start 07/05/16 at 09:00 Atorvastatin Calcium (Lipitor) 40 mg QHS PO Last administered on 07/09/16 20: 49; Admin Dose 40 MG; Start 07/04/16 at 21:00 Losartan Potassium (Cozaar) 50 mg BID PO Last administered on 07/10/16 09:52; Admin Dose 50 MG; Start 07/04/16 at 21:00 Olanzapine (Zyprexa) 5 mg DAILY PO Last administered on 07/10/16 09:59; Admin Dose 5 MG; Start 07/05/16 at 09:00 Ondansetron HCl (Zofran Odt) 4 mg Q6H PRN ODT NAUSEA AND/OR VOMITING Last administered on 07/10/16 12:02; Admin Dose 4 MG; Start 07/04/16 at 15:30 Paroxetine HCl (Paxil) 20 mg DAILY PO Last administered on 07/10/16 09:51; Admin Dose 20 MG; Start 07/05/16 at 09:00 Acetaminophen/ Hydrocodone Bitart ([place] (10/325)) 1 tab Q4 PRN PO MODERATE PAIN LEVEL 4-6 Last administered on 07/10/16 12:03; Admin Dose 1 TAB; Start at 22:00 Alprazolam (Xanax) 0.5 mg BID PO Last administered on 07/10/16 09:52; Admin Dose 0.5 MG; Start 07/04/16 at 22:00 Hydralazine HCl (Apresoline) 5 mg Q4 PRN IV ELEVATED SYSTOLIC BP Last administered on 07/08/16 15:04; Admin Dose 5 MG; Start 07/04/16 at 22:00 Guaifenesin/ Dextromethorphan (Robitussin Dm Liquid Cup) 10 ml Q4 PRN PO COUGH ; Start 07/04/16 at 22:00 Carvedilol (Coreg) 25 mg BID PO Last administered on 07/10/16 09:52; Admin Dose 25 MG; Start 07/05/16 at 21:00 Clonidine (Catapres) 0.1 mg BID PO Last administered on 07/10/16 09:52; Admin Dose 0.1 MG; Start 07/05/16 at 21:00 Famotidine (Pepcid) 20 mg DAILY PO Last administered on 07/10/16 09:51; Admin Dose 20 MG; Start 07/06/16 at 09:00 Zolpidem Tartrate (Ambien) 5 mg HS PRN PO INSOMNIA Last administered on 00:16; Admin Dose 5 MG; Start 07/07/16 at 00:30 Albuterol (Ventolin Hfa) 2 puff Q6 PRN INH WHEEZING; Start 07/08/16 at 23:00 Hydralazine HCl (Apresoline) 100 mg TID PO Last administered on 07/10/16 12:03 ; Admin Dose 100 MG; Start 07/08/16 at 23:00 Nifedipine (Procardia Xl) 60 mg DAILY PO Last administered on 07/10/16 09:51; Admin Dose 60 MG; Start 07/08/16 at 23:00 LESLEE MCKENZIE MD Jul 10, 2016 12:39
[2016-07-10] MEDS: ATORVASTATIN 40 MG TAB PO SCH (22:39)
[2016-07-11 07:50] VITALS: BP 144/81; RESP 18
[2016-07-11] MEDS: OLANZAPINE 5 MG TAB PO SCH (08:23)
[2016-07-11] MEDS: FAMOTIDINE 20 MG TAB PO SCH (08:23)
[2016-07-11] MEDS: ALPRAZOLAM 0.25 MG TAB PO SCH ×2 (08:23→20:45)
[2016-07-11] MEDS: PAROXETINE 20 MG TAB PO SCH (08:24)
[2016-07-11] MEDS: LOSARTAN 50 MG TAB PO SCH ×2 (08:24→20:45)
[2016-07-11] MEDS: NIFEdipine (XL) 60 MG TAB PO SCH (08:25)
[2016-07-11] MEDS: ENOXAPARIN 40 MG/0.4 ML SYG SC SCH (08:26)
--- NOTE | 2016-07-11 08:59 | DS ---
DATE OF ADMISSION: 07/04/2016 DATE OF DISCHARGE: ADDENDUM Kept in the hospital. Placement pending. Not a candidate for SNF. Antic[facility]ate [facility] to [facility]. The patient is back with social service. any history of alcoholism, where he "qu it about 1 year ago." He also has some financial difficulties and would rather spend his money on a new truck. I reinforced the need to get up and out of bed and ambulate to help with dizziness and deconditionin g. The patient states of having some depressed mood. ideation. I asked him if he would like to speak with a behavioral health specialist and he said, "no, they don't do anything." Should he come forward and accept the ability and benefits of consultative services, I will be happy to reconsult in consultative services. The patient has an appointment with the neurosurgeon on the . NEW MEDICATIONS: [place] 10 one every 6 as needed for pain. Dictated By: LESLEE NEELY/RIZWANA Conf#: [id number] DID#: [id number]
[2016-07-11] MEDS: morphine 2 MG INJ IV PRN ×3 (10:45→20:44)
[2016-07-11] MEDS: HYDROCODONE/APAP (10/325) TAB PO PRN ×2 (10:48→23:01)
--- NOTE | 2016-07-11 12:43 | DS ---
Date/Time of Note Date/Time of Note DATE: 07/11/16 TIME: 12:38 Discharge Summary Admission/Discharge Info Admit Date/Time Jul 04, 2016 at 20:57 Discharge Date/Time Final Diagnosis 1. Syncope, vasovagal versus orthostatic, stable 2. Recent C2 fracture. Stable cont halo. To visit [facility]t Macias on the 3.Positional vertigo, meclizine prn 4. Normocytic anemia. stable, follow up with PCP for work up 5. Hypertension, medication adjusted, stable 6. Cough, treated bronchitis 7. Ho stroke. Cont rfm Patient Condition: Stable Procedures [place] [id number] Radiology Main Line: [phone] DIAGNOSTIC IMAGING REPORT Patient: MARINA ASHTON : 1955 Age: 60 Sex: M MR #: [id number] DOS: 07/04/16 1148 Ordering MD: MARINA DE LA CRUZ MD Location: E/R Room/Bed: PROCEDURE: CT Brain without contrast. CLINICAL INDICATION: 60-year-old male with syncope. TECHNIQUE: A CT of the brain was performed on a high-resolution CT scanner utilizing a low dose technique with axial imaging from the skull base through the vertex without IV contrast. Multiplanar reformatted images were made. Images were reviewed on a PACS workstation. The CTDIvol is 44.99 mGy and the DLP is 720.23 mGycm. One or more of the following dose reduction techniques were used: - Automated exposure control. - Adjustment of the mA and/or kV according to patient size. Use of iterative reconstruction technique. COMPARISON: CT scan brain 09/20/2015. FINDINGS: There are vascular calcifications in the cavernous and supracavernous portions of the internal carotid arteries. There is a tiny low attached to the outer table of the skull by external pins. There are multiple streak artifacts related to the halo. The fourth, third and lateral ventricles are mildly dilated with proportional sulcal dilatation noted. There is a small old 5 mm lacunar infarct in the left extreme capsule. Portions of the brain parenchyma are poorly visualized due to streak artifacts which represents a limitation of the study. Within the limits and post no intracranial mass or hemorrhage is identified. The visible portions of the globes and extraocular muscles are normal. The paranasal sinuses are clear. The mastoid air cells and internal auditory canals are normal. The bony calvarium is intact. There is a metal plate attached to the right zygoma. IMPRESSION: 1. Cerebral and cerebellar atrophy. Stable old 5 mm lacunar infarct in the left extreme capsule. 2. An external halo is attached to the skull. 3. Portions of the brain foramen are not evaluated secondary to streak artifacts from the halo. RPTAT:AAJJ Herberth Jacobson, Physician Date Time Electronically viewed and signed by Herberth Jacobson Physician on 07/04/2016 13:49 JM/ CC: MARINA DE LA CRUZ MD Hospital Course HOSPITAL COURSE: This is a 60-year-old gentleman admitted with syncope. He was found to have orthostatics which are borderline, probably due to an element of deconditioning. He is presently stable and fit for discharge. No arrhythmias on the monitor. No neurological deficits suggestive of stroke. No active bleed, etc. Recent C2 fracture. To continue halo. He has an appointment to visit his specialist later this month. Due to his deconditioning, I would recommend he go to a prison facility. Disposition will be re-evaluated soon. In terms of his chronic hypertension, there is lots of fluctuation. Do not see any evidence of end-organ failure at this time. Additionally, I do not see any evidence of secondary etiology at this time. However, he does require 4-drug therapy for stability. At this point in time, we will continue care and re- evaluate as an outpatient as needed. There are issues of nonadherence which will complicate any continuity of care. I did reinforce the risk of stroke and brain damage with the patient. Patient has vertigo on laying position, will give meclizine prn. Home Meds Active Scripts Losartan Potassium* (Losartan Potassium*) 50 Mg Tablet, 50 MG PO BID for 10 Days , #30 TAB Prov:LESLEE MCKENZIE MD 07/06/16 Hydralazine Hcl* (Hydralazine Hcl*) 50 Mg Tab, 75 MG PO TID for 10 Days, #30 TAB Prov:LESLEE MCKENZIE MD 07/06/16 Guaifenesin-Dextromethorphan* (Robitussin* DM) 100MG/10MG/5ML Syrup, 10 ML PO Q4 Y for COUGH for 7 Days Prov:LESLEE MCKENZIE MD 07/06/16 Clonidine Hcl* (Clonidine Hcl*) 0.1 Mg Tab, 0.1 MG PO BID for 7 Days, #14 TAB Prov:LESLEE MCKENZIE MD 07/06/16 Carvedilol* (Carvedilol*) 25 Mg Tablet, 25 MG PO BID for 15 Days, #30 TAB Prov:LESLEE MCKENZIE MD 07/06/16 Acetaminophen (MAPAP) 325 Mg Tablet, 650 MG PO Q6H Y for PAIN LEVEL 1-3 OR FEVER for 1 Day, TAB Prov:LESLEE MCKENZIE MD 07/06/16 Ondansetron (Ondansetron Odt) 4 Mg Tab.rapdis, 4 MG PO Q6H Y for NAUSEA AND/OR VOMITING, #30 TAB Prov:KENYA WILKINSON MD 06/22/16 Reported Medications Paroxetine Hcl* (Paxil*) 20 Mg Tablet, 20 MG PO DAILY, TAB 05/22/16 Olanzapine* (Zyprexa*) 5 Mg Tablet, 5 MG PO DAILY, #30 TAB 05/22/16 Atorvastatin* (Atorvastatin*) 40 Mg Tablet, 40 MG PO QHS, #30 TAB 05/22/16 Famotidine* (Famotidine*) 20 Mg Tablet, 20 MG PO BID, #60 TAB 05/22/16 Discontinued Reported Medications Losartan Potassium* (Losartan Potassium*) 50 Mg Tablet, 50 MG PO BID, TAB 05/22/16 Carvedilol* (Carvedilol*) 12.5 Mg Tablet, 12.5 MG PO BID, #60 TAB 05/22/16 Trazodone Hcl* (Desyrel*) 100 Mg Tab, 100 MG PO QHS, #30 TAB 05/22/16 Amlodipine Besylate* (Norvasc*) 5 Mg Tablet, 5 MG PO DAILY, TAB 05/22/16 Clonidine Hcl* (Clonidine Hcl*) 0.1 Mg Tab, 0.1 MG PO QAM, TAB TAKE 2ND DOSAGE IN THE PM IF NEEDED 05/22/16 Hydralazine Hcl* (Hydralazine Hcl*) 50 Mg Tab, 50 MG PO BID, #120 TAB 05/22/16 Discontinued Scripts Atenolol* (Tenormin*) 50 Mg Tab, 50 MG PO BID for 30 Days, TAB Prov:DANILO SINGH NP 07/22/15 Metronidazole* (Flagyl*) 500 Mg Tablet, 500 MG PO TID for DIARRHEA, #21 TAB Prov:VIOLET WILSON MD 05/25/16 Follow-up Plan SNF Follow up with PCP KATIE OLVERA MD Jul 11, 2016 12:43
[2016-07-11] MEDS: MECLIZINE 25 MG TAB PO PRN (15:05)
[2016-07-11 20:20] VITALS: BP 149/90; RESP 18
[2016-07-11] MEDS: ATORVASTATIN 40 MG TAB PO SCH (20:45)
[2016-07-12 08:13] VITALS: BP 134/90; RESP 17
[2016-07-12] MEDS: ALPRAZOLAM 0.25 MG TAB PO SCH ×2 (08:36→20:22)
[2016-07-12] MEDS: LOSARTAN 50 MG TAB PO SCH ×2 (08:36→20:24)
[2016-07-12] MEDS: FAMOTIDINE 20 MG TAB PO SCH (08:37)
[2016-07-12] MEDS: NIFEdipine (XL) 60 MG TAB PO SCH (08:37)
[2016-07-12] MEDS: OLANZAPINE 5 MG TAB PO SCH (08:37)
[2016-07-12] MEDS: PAROXETINE 20 MG TAB PO SCH (08:38)
[2016-07-12] MEDS: morphine 2 MG INJ IV PRN ×3 (08:39→20:33)
[2016-07-12] MEDS: ENOXAPARIN 40 MG/0.4 ML SYG SC SCH (08:46)
[2016-07-12] MEDS: ONDANSETRON 4 MG INJ IV PRN (10:55)
[2016-07-12] MEDS: MECLIZINE 25 MG TAB PO PRN (10:56)
[2016-07-12] MEDS ORDERED: MECL-77 PO (15:14)
--- NOTE | 2016-07-12 15:17 | DS ---
Date/Time of Note Date/Time of Note DATE: 07/12/16 TIME: 15:15 Discharge Summary Admission/Discharge Info Admit Date/Time Jul 04, 2016 at 20:57 Discharge Date/Time Final Diagnosis 1. Syncope, vasovagal versus orthostatic, stable 2. Recent C2 fracture. Stable cont halo. To visit Chet Macias on the 3.Positional vertigo, meclizine prn 4. Normocytic anemia. stable, follow up with PCP for work up 5. Hypertension, medication adjusted, stable 6. Cough, treated bronchitis 7. Ho stroke. Cont rfm Patient Condition: Stable Hospital Course HOSPITAL COURSE: This is a 60-year-old gentleman admitted with syncope. He was found to have orthostatics which are borderline, probably due to an element of deconditioning. He is presently stable and fit for discharge. No arrhythmias on the monitor. No neurological deficits suggestive of stroke. No active bleed, etc. Recent C2 fracture. To continue halo. He has an appointment to visit his specialist later this month. Due to his deconditioning, I would recommend he go to a snf facility. Disposition will be re-evaluated soon. In terms of his chronic hypertension, there is lots of fluctuation. Do not see any evidence of end-organ failure at this time. Additionally, I do not see any evidence of secondary etiology at this time. However, he does require 4-drug therapy for stability. At this point in time, we will continue care and re- evaluate as an outpatient as needed. There are issues of nonadherence which will complicate any continuity of care. I did reinforce the risk of stroke and brain damage with the patient. Patient has vertigo on laying position, will give meclizine prn. Home Meds Active Scripts Meclizine Hcl* (Meclizine Hcl*) 25 Mg Tablet, 25 MG PO TID Y for vertigo for 30 Days, TAB Prov:KATIE OLVERA MD 07/12/16 Losartan Potassium* (Losartan Potassium*) 50 Mg Tablet, 50 MG PO BID for 10 Days , #30 TAB Prov:LESLEE MCKENZIE MD 07/06/16 Hydralazine Hcl* (Hydralazine Hcl*) 50 Mg Tab, 75 MG PO TID for 10 Days, #30 TAB Prov:LESLEE MCKENZIE MD 07/06/16 Guaifenesin-Dextromethorphan* (Robitussin* DM) 100MG/10MG/5ML Syrup, 10 ML PO Q4 Y for COUGH for 7 Days Prov:LESLEE MCKENZIE MD 07/06/16 Clonidine Hcl* (Clonidine Hcl*) 0.1 Mg Tab, 0.1 MG PO BID for 7 Days, #14 TAB Prov:LESLEE MCKENZIE MD 07/06/16 Carvedilol* (Carvedilol*) 25 Mg Tablet, 25 MG PO BID for 15 Days, #30 TAB Prov:LESELE MCKENZIE MD 07/06/16 Acetaminophen (MAPAP) 325 Mg Tablet, 650 MG PO Q6H Y for PAIN LEVEL 1-3 OR FEVER for 1 Day, TAB Prov:LESLEE MCKENZIE MD 07/06/16 Ondansetron (Ondansetron Odt) 4 Mg Tab.rapdis, 4 MG PO Q6H Y for NAUSEA AND/OR VOMITING, #30 TAB Prov:KENYA WILKINSON MD 06/22/16 Reported Medications Paroxetine Hcl* (Paxil*) 20 Mg Tablet, 20 MG PO DAILY, TAB 05/22/16 Olanzapine* (Zyprexa*) 5 Mg Tablet, 5 MG PO DAILY, #30 TAB 05/22/16 Atorvastatin* (Atorvastatin*) 40 Mg Tablet, 40 MG PO QHS, #30 TAB 05/22/16 Famotidine* (Famotidine*) 20 Mg Tablet, 20 MG PO BID, #60 TAB 05/22/16 Discontinued Reported Medications Losartan Potassium* (Losartan Potassium*) 50 Mg Tablet, 50 MG PO BID, TAB 05/22/16 Carvedilol* (Carvedilol*) 12.5 Mg Tablet, 12.5 MG PO BID, #60 TAB 05/22/16 Trazodone Hcl* (Desyrel*) 100 Mg Tab, 100 MG PO QHS, #30 TAB 05/22/16 Amlodipine Besylate* (Norvasc*) 5 Mg Tablet, 5 MG PO DAILY, TAB 05/22/16 Clonidine Hcl* (Clonidine Hcl*) 0.1 Mg Tab, 0.1 MG PO QAM, TAB TAKE 2ND DOSAGE IN THE PM IF NEEDED 2/5/17 Hydralazine Hcl* (Hydralazine Hcl*) 50 Mg Tab, 50 MG PO BID, #120 TAB 05/22/16 Discontinued Scripts Atenolol* (Tenormin*) 50 Mg Tab, 50 MG PO BID for 30 Days, TAB Prov:DANILO SINGH PUMPER HELPER 07/22/15 Follow-up Plan SNF Follow up with PCP and surgeryDr. KATIE Haile MD Jul 12, 2016 15:17
[2016-07-12] MEDS: HYDROCODONE/APAP (10/325) TAB PO PRN ×2 (17:14→23:51)
[2016-07-12] MEDS: hydrALAzine 20 MG INJ IV PRN (17:18)
[2016-07-12] MEDS: ATORVASTATIN 40 MG TAB PO SCH (20:22)
[2016-07-12 21:00] VITALS: BP 192/113; RESP 19
[2016-07-13] MEDS: morphine 2 MG INJ IV PRN ×4 (01:20→17:36)
[2016-07-13 07:34] VITALS: BP 139/91; RESP 18
[2016-07-13] MEDS: FAMOTIDINE 20 MG TAB PO SCH (09:00)
[2016-07-13] MEDS: OLANZAPINE 5 MG TAB PO SCH (09:11)
[2016-07-13] MEDS: PAROXETINE 20 MG TAB PO SCH (09:11)
[2016-07-13] MEDS: ALPRAZOLAM 0.25 MG TAB PO SCH (09:11)
[2016-07-13] MEDS: LOSARTAN 50 MG TAB PO SCH (09:12)
[2016-07-13] MEDS: HYDROCODONE/APAP (10/325) TAB PO PRN ×2 (09:13→15:04)
[2016-07-13] MEDS: NIFEdipine (XL) 60 MG TAB PO SCH (09:13)
[2016-07-13] MEDS: ENOXAPARIN 40 MG/0.4 ML SYG SC SCH (09:15)
--- NOTE | 2016-07-13 15:56 | DS ---
Date/Time of Note Date/Time of Note DATE: 07/13/16 TIME: 15:52 Discharge Summary Admission/Discharge Info Admit Date/Time Jul 04, 2016 at 20:57 Discharge Date/Time Final Diagnosis 1. Syncope, vasovagal versus orthostatic, stable 2. Recent C2 fracture. Stable cont halo. To visit Chet Macias on the 3.Positional vertigo, meclizine prn 4. Normocytic anemia. stable, follow up with PCP for work up 5. Hypertension, medication adjusted, stable 6. Cough, treated bronchitis 7. Ho stroke. Cont rfm Patient Condition: Stable Hospital Course HOSPITAL COURSE: This is a 60-year-old gentleman admitted with syncope. He was found to have orthostatics which are borderline, probably due to an element of deconditioning. He is presently stable and fit for discharge. No arrhythmias on the monitor. No neurological deficits suggestive of stroke. No active bleed, etc. Recent C2 fracture. To continue halo. He has an appointment to visit his specialist later this month. Due to his deconditioning, I would recommend he go to a prison facility. Disposition will be re-evaluated soon. In terms of his chronic hypertension, there is lots of fluctuation. Do not see any evidence of end-organ failure at this time. Additionally, I do not see any evidence of secondary etiology at this time. However, he does require 4-drug therapy for stability. At this point in time, we will continue care and re- evaluate as an outpatient as needed. There are issues of nonadherence which will complicate any continuity of care. I did reinforce the risk of stroke and brain damage with the patient. Patient developed severe hypertension on 07/12/2016 prior to discharge, that was resistant to hydralazine and clonidine, discharged was held. BP has been stable today. Patient has vertigo on laying position, will give meclizine prn. Home Meds Active Scripts Meclizine Hcl* (Meclizine Hcl*) 25 Mg Tablet, 25 MG PO TID Y for vertigo for 30 Days, TAB Prov:KATIE OLVERA MD 07/12/16 Losartan Potassium* (Losartan Potassium*) 50 Mg Tablet, 50 MG PO BID for 10 Days , #30 TAB Prov:LESLEE MCKENZIE MD 07/06/16 Hydralazine Hcl* (Hydralazine Hcl*) 50 Mg Tab, 75 MG PO TID for 10 Days, #30 TAB Prov:LESLEE MCKNEZIE MD 07/06/16 Guaifenesin-Dextromethorphan* (Robitussin* DM) 100MG/10MG/5ML Syrup, 10 ML PO Q4 Y for COUGH for 7 Days Prov:LESLEE MCKENZIE MD 07/06/16 Clonidine Hcl* (Clonidine Hcl*) 0.1 Mg Tab, 0.1 MG PO BID for 7 Days, #14 TAB Prov:LESLEE MCKENZIE MD 07/06/16 Carvedilol* (Carvedilol*) 25 Mg Tablet, 25 MG PO BID for 15 Days, #30 TAB Prov:LESLEE MCKENZIE MD 07/06/16 Acetaminophen (MAPAP) 325 Mg Tablet, 650 MG PO Q6H Y for PAIN LEVEL 1-3 OR FEVER for 1 Day, TAB Prov:LESLEE MCKENZIE MD 07/06/16 Ondansetron (Ondansetron Odt) 4 Mg Tab.rapdis, 4 MG PO Q6H Y for NAUSEA AND/OR VOMITING, #30 TAB Prov:KENYA WILKINSON MD 06/22/16 Reported Medications Paroxetine Hcl* (Paxil*) 20 Mg Tablet, 20 MG PO DAILY, TAB 05/22/16 Olanzapine* (Zyprexa*) 5 Mg Tablet, 5 MG PO DAILY, #30 TAB 05/22/16 Atorvastatin* (Atorvastatin*) 40 Mg Tablet, 40 MG PO QHS, #30 TAB 05/22/16 Famotidine* (Famotidine*) 20 Mg Tablet, 20 MG PO BID, #60 TAB 05/22/16 Discontinued Reported Medications Losartan Potassium* (Losartan Potassium*) 50 Mg Tablet, 50 MG PO BID, TAB 05/22/16 Carvedilol* (Carvedilol*) 12.5 Mg Tablet, 12.5 MG PO BID, #60 TAB 05/22/16 Trazodone Hcl* (Desyrel*) 100 Mg Tab, 100 MG PO QHS, #30 TAB 05/22/16 Amlodipine Besylate* (Norvasc*) 5 Mg Tablet, 5 MG PO DAILY, TAB 05/22/16 Clonidine Hcl* (Clonidine Hcl*) 0.1 Mg Tab, 0.1 MG PO QAM, TAB TAKE 2ND DOSAGE IN THE PM IF NEEDED 05/22/16 Hydralazine Hcl* (Hydralazine Hcl*) 50 Mg Tab, 50 MG PO BID, #120 TAB 05/22/16 Discontinued Scripts Atenolol* (Tenormin*) 50 Mg Tab, 50 MG PO BID for 30 Days, TAB Prov:DANILO SINGH NP 07/22/15 Follow-up Plan SNF Follow up with PCP and surgery KATIE Dyer MD Jul 13, 2016 15:56
== END 2016-07-13 17:57 | disposition home or self-care (01) | DRG 312 ==
LOC: E/R 11:22 → MS4 20:57 → PP2 07-10 17:55
PROVIDERS: ADMIT Internal Medicine Pulmonary Disease; ATTEND Internal Medicine Pulmonary Disease
DX: I95.1 Orthostatic hypotension (principal); R62.7 Adult failure to thrive; I12.9 Hypertensive chronic kidney disease with stage 1 through stage 4 chronic kidney disease, or unspecified chronic kidney disease; E78.5 Hyperlipidemia, unspecified; N18.9 Chronic kidney disease, unspecified; D64.9 Anemia, unspecified; F10.21 Alcohol dependence, in remission; J20.9 Acute bronchitis, unspecified; R42 Dizziness and giddiness; F32.9 Major depressive disorder, single episode, unspecified; S12.100D Unspecified displaced fracture of second cervical vertebra, subsequent encounter for fracture with routine healing; V89.2XXD Person injured in unspecified motor-vehicle accident, traffic, subsequent encounter; Z91.19 Patient's noncompliance with other medical treatment and regimen; Z86.73 Personal history of transient ischemic attack (TIA), and cerebral infarction without residual deficits
CPT/HCPCS: 70450; 71010; 80048; 80053; 80061; 80306; 80307; 82607; 83036; 83540; 83735; 84100; 84443; 85025; 85610; 85730; 93005; 96374; 96375; 96376; 97116; 97162; 97530; J0360; J1650; J2060; J2270; J2405; J7040

== ENCOUNTER 2016-08-09 15:59 | Emergency (ER) | payer OTHER ==
[~2016-08-09] VITALS: Ht 167.6 cm; Wt 77.3 kg
[~2016-08-09 15:59] MED LIST changes: +ACET325T40 PO; -AMLO5TAB4 PO; -APR50 PO; -ATEN-122 PO; -CARV12.579 PO; +CARV25TA79 PO; +HYDR-3672 PO; +MECL-77 PO; -METR500T PO; -TRAZ100T15 PO; +UDROBDM PO
[2016-08-09] MEDS ORDERED: ONDANSETRON 4 MG INJ IV STA ×2 (16:11→18:32)
[2016-08-09] MEDS ORDERED: morphine 4 MG/ML VIAL IV STA (16:11)
[2016-08-09] MEDS ORDERED: SOD CHLORIDE 0.9% 1,000 ML IV STA (16:11)
[2016-08-09 16:23] VITALS: Ht 167.6 cm; Wt 77.3 kg
[2016-08-09 16:47] LABS: ADD SCAN DIFF NO
[2016-08-09 16:48] LABS: BASOPHILS % 0.5 % (0.0-2.0); EOSINOPHILS # 0.3 10^3/ul (0.0-0.5); EOSINOPHILS % 4.5 % (0.0-7.0); HEMATOCRIT 30.7 % (42.0-52.0); LYMPHOCYTES # 1.2 10^3/ul (0.8-2.9); LYMPHOCYTES % 17.9 % (15.0-51.0); MEAN CORPUSCULAR HEMOGLOBIN 29.9 pg (29.0-33.0); MEAN CORPUSCULAR HGB CONC 32.6 g/dl (32.0-37.0); MEAN CORPUSCULAR VOLUME 91.6 fl (82.0-101.0); MEAN PLATELET VOLUME 9.3 fl (7.4-10.4); MONOCYTE # 0.7 10^3/ul (0.3-0.9); MONOCYTES % 10.7 % (0.0-11.0); NEUTROPHIL # 4.3 10^3/ul (1.6-7.5); NEUTROPHILS % 64.6 % (39.0-77.0); PLATELET COUNT 160 10^3/UL (140-415); RED BLOOD COUNT 3.35 10^6/ul (4.70-6.10); RED CELL DISTRIBUTION WIDTH 15.1 % (11.5-14.5); WHITE BLOOD COUNT 6.7 10^3/ul (4.8-10.8)
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
[2016-08-09 16:59] LABS: INR 1.04; PROTIME 13.6 Sec (12.2-14.2); PT RATIO 1.1
[2016-08-09 17:02] LABS: ALBUMIN 4.2 g/dl (3.3-4.9); ALBUMIN/GLOBULIN RATIO 1.23; CREATININE 1.73 mg/dl (0.61-1.24); TOTAL PROTEIN 7.6 g/dl (6.1-8.1)
[2016-08-09 17:08] LABS: PARTIAL THROMBOPLASTIN TIME 32.8 Sec (25.0-35.0)
[2016-08-09 18:07] VITALS: TEMP 98.4
[2016-08-09] MEDS ORDERED: LORAZEPAM 2 MG INJ IV ONE (18:30)
[2016-08-09] MEDS ORDERED: HYDROmorphONE 1 MG/ML SYG IV STA (18:32)
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
[2016-08-09] MEDS ORDERED: DOCU-144 PO (20:32)
[2016-08-09] MEDS ORDERED: HYDR-906 PO (20:32)
[2016-08-09 20:46] VITALS: BP 154/84; PULSE 102; RESP 18
[2016-08-09] MEDS ORDERED: HYDROCODONE/APAP (5/325) TAB PO ONE (21:00)
== END 2016-08-09 21:04 | disposition home or self-care (01) ==
LOC: E/R 15:59
DX: R51 Headache (principal); G89.18 Other acute postprocedural pain; N18.9 Chronic kidney disease, unspecified; I12.9 Hypertensive chronic kidney disease with stage 1 through stage 4 chronic kidney disease, or unspecified chronic kidney disease
CPT/HCPCS: 70450; 80053; 85025; 85610; 85730; J1170; J2270; J2405; J7030; Z7610; 36415; 96374; 96375; 96376